=== PATIENT | male | born 1960 | race Caucasian/White ===

== ENCOUNTER → 2017-09-06 | Outpatient (CLI) | payer OTHER, SELFPAY ==
[~2017-09-06] MED LIST: ALBU90OI INH; ALBU90OI61 INH; AMLO10 PO; AMLO5 PO; AMOCLA500 PO; AMOX500 PO; ANTARA; ARIP10 PO; ARIP15 PO; ASPI325 PO; ASPI81CH PO; ASPI81EC; ASPI81EC PO; ATOR10 PO; ATOR20 PO; ATOR40TA PO; ATOR80 PO; ATORVASTATIN CA40 MG PO; AXIRON; AZIT250 PO; Abilify5 MG PO; Aspirin EC325 MG PO; Aspirin EC81 MG; Aspirin EC81 MG PO; Ativan0.5 MG PO; BACL10 PO; BCOIRO PO; BISA10S PR; BUME2 PO; CALC.25 PO; CALCA500CH PO; CARV25 PO; CEPH500 PO; CHOL10002; CHOL10002 PO; CLOP75 PO; COLCRYS0.6 MG PO; COMBIVENT RESPIM4 GM INH; CYCL10 PO; Carvedilol25 MG PO; Coreg25 MG PO; Cymbalta30 MG PO; Cymbalta60 MG PO; DIAZ10 PO; DILT30 PO; DOCU100 PO; DULO30 PO; DULO60 PO; Docusate Sodiu1 EACH PO; ERGO50000 PO; FERR325 PO; FERROUS SULFATE PO; FISH1000 PO; FURO40 PO; FURO80 PO; Ferrous Sulfat325 M2 PO; Furosemide40 MG PO; GAVILAX17 GM PO; GLIM2 PO; GLIP10 PO; GLIP5 PO; Glucagon Emergen1 MG IJ; HUMALOG KW200 UNIT/1 SC; HYDACE10B PO; HYDACE5 PO; HYDACE7.5 PO; HYDCHL12.5 PO; HYDHCL25 PO; HYDMOR2; HYDMOR2 PO; HYDPAM100 PO; Humalog Mi100 UNIT/4; Hydrochloroth12.5 MG; Hydrocodone-Ap1 EA20 PO; IMDUR; INS70/30I; INS70/30PN SC; INSDET100; INSDET100 SC; INSUASPI SC; INSULANI SC; INSULANPEN; INSULANPEN SC; IRON150C PO; ISOMON30 PO; Ipratr-Albuterol3 ML INH; Isosorbide Mono60 MG PO; K-Dur 20 meq T20 MEQ PO; LAVAP17G PO; LEVO750 PO; LISI10 PO; LISI20 PO; LISI5 PO; LORA1 PO; LOSA25; LOSA25 PO; LOSA50 PO; LOSARTAN POTASS50 MG PO; Lantus100 UNIT/1 SC; Lasix40 MG PO; MAGOXI400 PO; METF500; METF500 PO; METF500C PO; METH5 PO; METO100ER PO; METO2.5 PO; METO50ER PO; MULVIT PO; MULVITMIND PO; Metformin HCl500 M1 PO; Metformin HCl500 MG PO; Multiple Vitam1 EAC1 PO; NAPR550 PO; NITR.4SL MM; NITR.4SL SL; NITR.6SL SL; Norco 10-325 T1 EACH PO; Novolog Fl100 UNIT/1 SC; Novolog100 UNIT/1 SC; Novolog100 UNIT/2; Novolog100 UNIT/2 SC; OMEG1CAP30 PO; OMEP20ER PO; OXAP600; OXYACE7.5T PO; OXYC5 PO; PANT40 PO; PIOG15 PO; PIOG45 PO; POTA10T PO; POTA20LUD PO; POTCHL20ER PO; PREG100 PO; PREG25 PO; PREG50 PO; PREG75 PO; Percocet 5-3251 EACH PO; Percocet 7.5-31 EACH PO; Prednisone10 MG PO; RAMI2.5 PO; RANO500T; RANO500T PO; ROBITUSSIN COU237 ML PO; ROBITUSSIN NIG237 ML PO; ROSI2; ROSU10TA PO; RU 500 SC; RXHYDACE PO; RXOXYACE PO; Robaxin-750750 MG PO; SERT50 PO; SPIR25 PO; SPIR50 PO; TAMS.4ER PO; TORSE20 PO; TUMS500 MG PO; UBID100 PO; VENL150ER PO; VITAMIN D32000 UNIT PO; XARELTO15 MG PO; ZESTORETIC 20-121 EA; ZOLP10 PO; Zofran Odt4 MG SL; [UNRECOGNIZED DRUG - OTHER]
[2017-09-06 11:46] LABS: Hematocrit 29.6 % (37.0-53.0); Hemoglobin 9.3 g/dL (13.5-17.5)
[2017-09-06 12:01] LABS: Anion Gap 9 mmol/L (6-16); Blood Urea Nitrogen 66 mg/dL (8-24); Bun/Creatinine Ratio 52.8 (12.0-20.0); CO2, Blood 33 mmol/L (21-32); Calcium, Blood 9.4 mg/dL (8.5-10.1); Chloride, Blood 94 mmol/L (98-108); Creatinine, Blood 1.25 mg/dL (0.60-1.20); Glomerular Filtration Rate >60 (60-); Glucose, Blood 441 mg/dL (70-99); Magnesium, Blood 1.7 mg/dL (1.6-2.4); Phosphorus, Blood 3.9 mg/dL (2.5-4.9); Sodium, Blood 136 mmol/L (136-145)
== END | disposition home or self-care (01) ==
LOC: OLS 10:28
PROVIDERS: Internal Medicine
DX: N18.3 Chronic kidney disease, stage 3 (moderate) (principal); D63.1 Anemia in chronic kidney disease; E61.2 Magnesium deficiency
CPT/HCPCS: 36415; 80069; 83735; 85014; 85018

== ENCOUNTER 2017-12-12 15:33 | Observation (INO) | payer OTHER ==
[~2017-12-12] VITALS: Ht 175.3 cm; Wt 125.4 kg
[~2017-12-12 15:33] MED LIST changes: -AMLO10 PO; -ATOR80 PO; -BACL10 PO; -BISA10S PR; -CALC.25 PO; -CEPH500 PO; -COLCRYS0.6 MG PO; -Cymbalta30 MG PO; -Cymbalta60 MG PO; -DILT30 PO; -DULO30 PO; -Ferrous Sulfat325 M2 PO; -HUMALOG KW200 UNIT/1 SC; -HYDHCL25 PO; -HYDMOR2 PO; -HYDPAM100 PO; -Humalog Mi100 UNIT/4; -Hydrocodone-Ap1 EA20 PO; -IMDUR; -Metformin HCl500 MG PO; -Novolog100 UNIT/2 SC; -OXAP600; -POTCHL20ER PO; -PREG75 PO; -Prednisone10 MG PO; -ROBITUSSIN NIG237 ML PO; -RU 500 SC; -Robaxin-750750 MG PO; -SPIR25 PO
[2017-12-12 15:55] LABS: Calcium, Ionized (POC) 1.19 mmol/L (1.10-1.46); Chloride (POC) 87 mmol/L (98-108); Creatinine (POC) 1.7 mg/dL (0.8-1.3); Glucose (ISTAT POC) 559 mg/dL (70-99); Hemoglobin (POC) 11.9 g/dL (13.5-17.5); Potassium (POC) 4.7 mmol/L (3.5-5.5); Sodium (POC) 128 mmol/L (135-148); Total CO2 (POC) 30 mmol/L (21-32)
[2017-12-12 16:17] LABS: Hematocrit 32.3 % (37.0-53.0); Hemoglobin 11.2 g/dL (13.5-17.5); Mean Corpuscular HGB 29.5 pg (26.0-34.0); Mean Corpuscular HGB Conc 34.7 g/dL (31.5-36.5); Mean Corpuscular Volume 85 fL (80-100); Mean Platelet Volume 9.1 fL (9.1-12.4); Platelet Count 145 K/mm3 (150-400); RDW Coefficient Variation 16.2 % (11.7-14.2); White Blood Cell Count 12.08 K/mm3 (4.00-11.30)
[2017-12-12 16:31] LABS: International Normalized Ratio 1.03; Prothrombin Time Results 10.7 Sec (9.7-11.5)
[2017-12-12 16:45] LABS: Alanine Aminotransfer (ALT/SGP 41 U/L (12-78); Albumin, Blood 3.3 g/dL (3.4-5.0); Albumin/Globulin Ratio 0.8 (0.8-1.8); Alk Phos 140 U/L (50-136); Anion Gap 10 mmol/L (6-16); Aspartate Aminotrans (AST/SGOT 29 U/L (12-37); Bilirubin, Total 0.4 mg/dL (0.1-1.0); Blood Urea Nitrogen 62 mg/dL (8-24); Bun/Creatinine Ratio 41.1 (12.0-20.0); CHOL/HDL RATIO 6.2; CO2, Blood 28 mmol/L (21-32); Calcium, Blood 9.3 mg/dL (8.5-10.1); Chloride, Blood 90 mmol/L (98-108); Cholesterol 180 mg/dL (50-200); Creatinine, Blood 1.51 mg/dL (0.60-1.20); Globulin, Blood 4.4 g/dL (2.2-4.0); Glomerular Filtration Rate 51 (60-); Glucose, Blood 561 mg/dL (70-99); HDL Cholesterol 29 mg/dL (>39); LDL/HDL RATIO Unable to Calculate; Low Density Lipoprotein Chol Unable to Calculate mg/dL (0-110); Magnesium, Blood 2.2 mg/dL (1.6-2.4); Potassium, Blood 4.5 mmol/L (3.5-5.5); Sodium, Blood 128 mmol/L (136-145); Total Protein, Blood 7.7 g/dL (6.4-8.2); Triglycerides 927 mg/dL (30-160); Troponin I <0.015 ng/mL (0.000-0.040); Very Low Density Lipoprot Chol Unable to Calculate mg/dL (6-32)
[2017-12-12] MEDS ORDERED: Novolog100 UNIT/2 SC (19:55)
[2017-12-12] MEDS ORDERED: INSULANPEN SC (19:58)
[2017-12-12] MEDS ORDERED: SPIR25 PO ×2 (19:59→20:00)
[2017-12-12] MEDS ORDERED: POTCHL20ER PO (20:01)
[2017-12-12] MEDS ORDERED: ASPI81CH PO (20:04)
[2017-12-13 04:27] LABS: BASOPHILS ABSOLUTE AUTO 0.05 K/mm3 (0.00-0.23); BASOPHILS PERCENT AUTO 0 % (0-2); EOSINOPHILS ABSOLUTE AUTO 0.18 K/mm3 (0.00-0.68); EOSINOPHILS PERCENT AUTO 2 % (0-6); Hematocrit 32.6 % (37.0-53.0); Hemoglobin 10.6 g/dL (13.5-17.5); IMMATURE GRAN ABSOLUTE AUTO 0.31 K/mm3 (0.00-0.10); IMMATURE GRAN PERCENT AUTO 3 % (0-1); LYMPHOCYTES ABSOLUTE AUTO 1.88 K/mm3 (0.84-5.20); LYMPHOCYTES PERCENT AUTO 17 % (21-46); MONOCYTES ABSOLUTE AUTO 0.75 K/mm3 (0.16-1.47); MONOCYTES PERCENT AUTO 7 % (4-13); Mean Corpuscular HGB 28.3 pg (26.0-34.0); Mean Corpuscular HGB Conc 32.5 g/dL (31.5-36.5); Mean Corpuscular Volume 87 fL (80-100); Mean Platelet Volume 9.3 fL (9.1-12.4); NEUTROPHILS ABSOLUTE AUTO 8.08 K/mm3 (1.96-9.15); NEUTROPHILS PERCENT AUTO 72 % (41-73); Platelet Count 133 K/mm3 (150-400); RDW Coefficient Variation 16.5 % (11.7-14.2); Red Blood Cell Count 3.74 M/mm3 (4.30-5.90); White Blood Cell Count 11.25 K/mm3 (4.00-11.30)
[2017-12-13 04:44] LABS: Albumin, Blood 3.1 g/dL (3.4-5.0); Anion Gap 8 mmol/L (6-16); Blood Urea Nitrogen 52 mg/dL (8-24); Bun/Creatinine Ratio 40.9 (12.0-20.0); CO2, Blood 30 mmol/L (21-32); Calcium, Blood 9.2 mg/dL (8.5-10.1); Chloride, Blood 96 mmol/L (98-108); Creatinine, Blood 1.27 mg/dL (0.60-1.20); Glomerular Filtration Rate >60 (60-); Glucose, Blood 332 mg/dL (70-99); Phosphorus, Blood 4.2 mg/dL (2.5-4.9); Potassium, Blood 4.1 mmol/L (3.5-5.5); Sodium, Blood 134 mmol/L (136-145)
== END 2017-12-13 15:22 | disposition home or self-care (01) ==
LOC: ER 15:33 → ICUW 15:34 → ICUE 15:34
PROVIDERS: Family Medicine; Physician Assistant
DX: R07.9 Chest pain, unspecified (principal); E11.22 Type 2 diabetes mellitus with diabetic chronic kidney disease; I13.0 Hypertensive heart and chronic kidney disease with heart failure and stage 1 through stage 4 chronic kidney disease, or unspecified chronic kidney disease; I50.9 Heart failure, unspecified; N18.3 Chronic kidney disease, stage 3 (moderate); I25.10 Atherosclerotic heart disease of native coronary artery without angina pectoris; E78.1 Pure hyperglyceridemia; J44.9 Chronic obstructive pulmonary disease, unspecified; E11.65 Type 2 diabetes mellitus with hyperglycemia; E87.1 Hypo-osmolality and hyponatremia; D72.829 Elevated white blood cell count, unspecified; D69.6 Thrombocytopenia, unspecified; G47.33 Obstructive sleep apnea (adult) (pediatric); E66.01 Morbid (severe) obesity due to excess calories; E11.40 Type 2 diabetes mellitus with diabetic neuropathy, unspecified; Z99.89 Dependence on other enabling machines and devices; Z95.1 Presence of aortocoronary bypass graft; Z95.5 Presence of coronary angioplasty implant and graft; Z99.81 Dependence on supplemental oxygen; Z86.73 Personal history of transient ischemic attack (TIA), and cerebral infarction without residual deficits; Z86.711 Personal history of pulmonary embolism; Z98.890 Other specified postprocedural states; Z88.8 Allergy status to other drugs, medicaments and biological substances; Z88.5 Allergy status to narcotic agent; Z79.899 Other long term (current) drug therapy; Z79.2 Long term (current) use of antibiotics; Z79.82 Long term (current) use of aspirin; Z68.41 Body mass index [BMI] 40.0-44.9, adult
CPT/HCPCS: 36415; 71046; 80047; 80053; 80061; 80069; 82947; 83690; 83735; 83880; 84484; 85014; 85025; 85027; 85379; 85610; 85730; 86850; 86900; 86901; 93005; 93010; 94660; 96361; 96374; 96375; 99285; C8929; J1815; J3010; J7030; J7070; Q9957

== ENCOUNTER 2017-12-22 20:09 | Observation (INO) | payer OTHER ==
[~2017-12-22] VITALS: Ht 175.3 cm; Wt 125.6 kg
[~2017-12-22 20:09] MED LIST changes: +Novolog100 UNIT/2 SC; +POTCHL20ER PO; +SPIR25 PO
[2017-12-22] MEDS ORDERED: TORSE20 PO (20:32)
[2017-12-22] MEDS ORDERED: METO2.5 PO (20:32)
[2017-12-22 20:45] LABS: BASOPHILS ABSOLUTE AUTO 0.03 K/mm3 (0.00-0.23); BASOPHILS PERCENT AUTO 0 % (0-2); EOSINOPHILS ABSOLUTE AUTO 0.01 K/mm3 (0.00-0.68); EOSINOPHILS PERCENT AUTO 0 % (0-6); Hematocrit 32.7 % (37.0-53.0); Hemoglobin 11.2 g/dL (13.5-17.5); IMMATURE GRAN ABSOLUTE AUTO 0.26 K/mm3 (0.00-0.10); IMMATURE GRAN PERCENT AUTO 3 % (0-1); LYMPHOCYTES ABSOLUTE AUTO 0.61 K/mm3 (0.84-5.20); LYMPHOCYTES PERCENT AUTO 7 % (21-46); MONOCYTES ABSOLUTE AUTO 0.15 K/mm3 (0.16-1.47); MONOCYTES PERCENT AUTO 2 % (4-13); Mean Corpuscular HGB 29.7 pg (26.0-34.0); Mean Corpuscular HGB Conc 34.3 g/dL (31.5-36.5); Mean Corpuscular Volume 87 fL (80-100); Mean Platelet Volume 9.1 fL (9.1-12.4); NEUTROPHILS ABSOLUTE AUTO 7.87 K/mm3 (1.96-9.15); NEUTROPHILS PERCENT AUTO 88 % (41-73); Platelet Count 138 K/mm3 (150-400); RDW Coefficient Variation 15.5 % (11.7-14.2); RDW Standard Deviation 48.6 fL (35.1-46.3); Red Blood Cell Count 3.77 M/mm3 (4.30-5.90); White Blood Cell Count 8.93 K/mm3 (4.00-11.30)
[2017-12-22 21:06] LABS: Troponin I <0.015 ng/mL (0.000-0.040)
[2017-12-22 21:10] LABS: Alanine Aminotransfer (ALT/SGP 46 U/L (12-78); Albumin, Blood 3.4 g/dL (3.4-5.0); Albumin/Globulin Ratio 0.7 (0.8-1.8); Alk Phos 135 U/L (50-136); Anion Gap 13 mmol/L (6-16); Aspartate Aminotrans (AST/SGOT 27 U/L (12-37); Bilirubin, Total 0.5 mg/dL (0.1-1.0); Blood Urea Nitrogen 58 mg/dL (8-24); Bun/Creatinine Ratio 47.5 (12.0-20.0); CO2, Blood 26 mmol/L (21-32); Calcium, Blood 9.4 mg/dL (8.5-10.1); Chloride, Blood 88 mmol/L (98-108); Creatinine, Blood 1.22 mg/dL (0.60-1.20); Globulin, Blood 4.7 g/dL (2.2-4.0); Glomerular Filtration Rate >60 (60-); Glucose, Blood 697 mg/dL (70-99); Potassium, Blood 5.5 mmol/L (3.5-5.5); Sodium, Blood 127 mmol/L (136-145); Total Protein, Blood 8.1 g/dL (6.4-8.2)
[2017-12-22 21:17] LABS: Source, Urine Clean Catch
[2017-12-22 21:19] LABS: Bilirubin, Urine Neg (Neg); Blood, Urine Neg (Neg); Glucose Qualitative, Urine 4+ (Neg); Ketones, Urine Neg (Neg); Leukocyte Esterase, Urine Neg (Neg); Nitrite, Urine Neg (Neg); Protein, Urine Neg (Neg); Specific Gravity, Urine 1.015 (1.003-1.022); Urobilinogen, Urine NORM (Normal)
[2017-12-22 21:20] LABS: Appearance, Urine Clear (Clear); Color, Urine Pale Yellow (P-Yellow)
[2017-12-22 21:45] LABS: Beta-hydroxybutyrate 2.6 mg/dL (0.2-2.8)
[2017-12-23 00:34] LABS: Glucose, Blood 555 mg/dL (70-99)
[2017-12-23 08:59] LABS: BASOPHILS ABSOLUTE AUTO 0.04 K/mm3 (0.00-0.23); BASOPHILS PERCENT AUTO 0 % (0-2); EOSINOPHILS ABSOLUTE AUTO 0.02 K/mm3 (0.00-0.68); EOSINOPHILS PERCENT AUTO 0 % (0-6); Hematocrit 33.4 % (37.0-53.0); IMMATURE GRAN PERCENT AUTO 2 % (0-1); LYMPHOCYTES ABSOLUTE AUTO 1.17 K/mm3 (0.84-5.20); LYMPHOCYTES PERCENT AUTO 12 % (21-46); MONOCYTES ABSOLUTE AUTO 0.59 K/mm3 (0.16-1.47); MONOCYTES PERCENT AUTO 6 % (4-13); Mean Corpuscular HGB Conc 32.9 g/dL (31.5-36.5); Mean Corpuscular Volume 88 fL (80-100); Mean Platelet Volume 8.7 fL (9.1-12.4); NEUTROPHILS ABSOLUTE AUTO 7.99 K/mm3 (1.96-9.15); NEUTROPHILS PERCENT AUTO 80 % (41-73); Platelet Count 128 K/mm3 (150-400); RDW Coefficient Variation 15.6 % (11.7-14.2); RDW Standard Deviation 49.1 fL (35.1-46.3); Red Blood Cell Count 3.79 M/mm3 (4.30-5.90); White Blood Cell Count 10.01 K/mm3 (4.00-11.30)
[2017-12-23 09:17] LABS: Anion Gap 10 mmol/L (6-16); Blood Urea Nitrogen 52 mg/dL (8-24); Bun/Creatinine Ratio 49.1 (12.0-20.0); CO2, Blood 28 mmol/L (21-32); Calcium, Blood 9.1 mg/dL (8.5-10.1); Chloride, Blood 96 mmol/L (98-108); Creatinine, Blood 1.06 mg/dL (0.60-1.20); Glomerular Filtration Rate >60 (60-); Glucose, Blood 383 mg/dL (70-99); Potassium, Blood 4.5 mmol/L (3.5-5.5); Sodium, Blood 134 mmol/L (136-145); Troponin I <0.015 ng/mL (0.000-0.040)
[2017-12-24 08:43] LABS: Amylase, Blood 25 U/L (25-115)
[2017-12-25 08:16] LABS: HBSAG SCREEN Negative (Negative); HEP A AB, IGM Negative (Negative); HEP B CORE AB, IGM Negative (Negative); HEP C VIRUS AB <0.1 (0.0-0.9)
[2017-12-27] MEDS ORDERED: ATOR80 PO (10:11)
== END 2017-12-27 10:50 | disposition home or self-care (01) ==
LOC: ER 20:09 → PCU 20:10 → MEDS 20:10 → PCU 23:56 → MEDS 12-25 17:26 → ENPENDDIS 12-27 08:00 → MEDS 12-27 10:50
PROVIDERS: Emergency Medicine; Family Medicine; Internal Medicine; Nurse Practitioner Acute Care
DX: R07.9 Chest pain, unspecified (principal); E11.22 Type 2 diabetes mellitus with diabetic chronic kidney disease; I50.32 Chronic diastolic (congestive) heart failure; I13.0 Hypertensive heart and chronic kidney disease with heart failure and stage 1 through stage 4 chronic kidney disease, or unspecified chronic kidney disease; N18.3 Chronic kidney disease, stage 3 (moderate); N17.9 Acute kidney failure, unspecified; K76.0 Fatty (change of) liver, not elsewhere classified; D69.6 Thrombocytopenia, unspecified; K59.00 Constipation, unspecified; J96.11 Chronic respiratory failure with hypoxia; E78.1 Pure hyperglyceridemia; E66.01 Morbid (severe) obesity due to excess calories; E11.40 Type 2 diabetes mellitus with diabetic neuropathy, unspecified; F32.9 Major depressive disorder, single episode, unspecified; M79.7 Fibromyalgia; I25.10 Atherosclerotic heart disease of native coronary artery without angina pectoris; E11.65 Type 2 diabetes mellitus with hyperglycemia; E87.1 Hypo-osmolality and hyponatremia; E78.00 Pure hypercholesterolemia, unspecified; G47.30 Sleep apnea, unspecified; J44.9 Chronic obstructive pulmonary disease, unspecified; Z82.49 Family history of ischemic heart disease and other diseases of the circulatory system; Z95.1 Presence of aortocoronary bypass graft; Z88.8 Allergy status to other drugs, medicaments and biological substances; Z79.02 Long term (current) use of antithrombotics/antiplatelets; Z79.899 Other long term (current) drug therapy; Z86.73 Personal history of transient ischemic attack (TIA), and cerebral infarction without residual deficits; Z95.5 Presence of coronary angioplasty implant and graft; Z99.89 Dependence on other enabling machines and devices; Z79.01 Long term (current) use of anticoagulants; Z86.711 Personal history of pulmonary embolism; R93.2 Abnormal findings on diagnostic imaging of liver and biliary tract
CPT/HCPCS: 36415; 71046; 71260; 76705; 80048; 80053; 80074; 81003; 82010; 82103; 82150; 82947; 83690; 83880; 84484; 85025; 85379; 93005; 93010; 94760; 94762; 96361; 96372; 96374; 96375; 96376; 99285; G0378; J1650; J1815; J2060; J2405; J3010; J7030; Q9967

== ENCOUNTER → 2018-01-05 | Outpatient (CLI) | payer OTHER, SELFPAY ==
[~2018-01-05] MED LIST changes: +ATOR80 PO; +BISA10S PR; +CEPH500 PO; +Cymbalta30 MG PO; +Cymbalta60 MG PO; +HYDHCL25 PO; +HYDMOR2 PO
[2018-01-05 10:10] LABS: BASOPHILS ABSOLUTE AUTO 0.07 K/mm3 (0.00-0.23); BASOPHILS PERCENT AUTO 1 % (0-2); EOSINOPHILS ABSOLUTE AUTO 0.41 K/mm3 (0.00-0.68); EOSINOPHILS PERCENT AUTO 3 % (0-6); Hematocrit 31.1 % (37.0-53.0); Hemoglobin 10.5 g/dL (13.5-17.5); IMMATURE GRAN ABSOLUTE AUTO 0.41 K/mm3 (0.00-0.10); IMMATURE GRAN PERCENT AUTO 3 % (0-1); LYMPHOCYTES PERCENT AUTO 13 % (21-46); MONOCYTES ABSOLUTE AUTO 0.92 K/mm3 (0.16-1.47); MONOCYTES PERCENT AUTO 7 % (4-13); Mean Corpuscular HGB 29.7 pg (26.0-34.0); Mean Corpuscular HGB Conc 33.8 g/dL (31.5-36.5); Mean Corpuscular Volume 88 fL (80-100); Mean Platelet Volume 8.4 fL (9.1-12.4); NEUTROPHILS ABSOLUTE AUTO 9.35 K/mm3 (1.96-9.15); NEUTROPHILS PERCENT AUTO 73 % (41-73); Platelet Count 145 K/mm3 (150-400); RDW Coefficient Variation 15.2 % (11.7-14.2); RDW Standard Deviation 48.5 fL (35.1-46.3); Red Blood Cell Count 3.53 M/mm3 (4.30-5.90); White Blood Cell Count 12.86 K/mm3 (4.00-11.30)
[2018-01-05 10:21] LABS: Albumin/Globulin Ratio 0.7 (0.8-1.8); Bilirubin, Total 0.3 mg/dL (0.1-1.0); Bun/Creatinine Ratio 19.6 (12.0-20.0); Calcium, Blood 9.1 mg/dL (8.5-10.1); Creatinine, Blood 1.63 mg/dL (0.60-1.20); Globulin, Blood 4.4 g/dL (2.2-4.0); Potassium, Blood 4.1 mmol/L (3.5-5.5); Total Protein, Blood 7.4 g/dL (6.4-8.2); Uric Acid, Blood 13.5 mg/dL (3.5-7.2)
== END | disposition home or self-care (01) ==
LOC: LAB EV 10:04 → LAB SHORT 10:04
PROVIDERS: Physician Assistant
DX: M25.521 Pain in right elbow (principal)
CPT/HCPCS: 80053; 84550; 85025

== ENCOUNTER 2018-01-07 00:24 | Emergency (ER) | payer OTHER, SELFPAY ==
[~2018-01-07] VITALS: Ht 175.3 cm; Wt 123.8 kg
[~2018-01-07 00:24] MED LIST changes: -Cymbalta30 MG PO; -Cymbalta60 MG PO; -HYDHCL25 PO
[2018-01-07 00:46] LABS: BASOPHILS ABSOLUTE AUTO 0.11 K/mm3 (0.00-0.23); BASOPHILS PERCENT AUTO 1 % (0-2); EOSINOPHILS ABSOLUTE AUTO 0.37 K/mm3 (0.00-0.68); EOSINOPHILS PERCENT AUTO 3 % (0-6); Hematocrit 33.7 % (37.0-53.0); Hemoglobin 11.2 g/dL (13.5-17.5); IMMATURE GRAN ABSOLUTE AUTO 0.55 K/mm3 (0.00-0.10); IMMATURE GRAN PERCENT AUTO 5 % (0-1); LYMPHOCYTES ABSOLUTE AUTO 1.55 K/mm3 (0.84-5.20); LYMPHOCYTES PERCENT AUTO 14 % (21-46); MONOCYTES ABSOLUTE AUTO 0.61 K/mm3 (0.16-1.47); MONOCYTES PERCENT AUTO 5 % (4-13); Mean Corpuscular HGB 29.6 pg (26.0-34.0); Mean Corpuscular HGB Conc 33.2 g/dL (31.5-36.5); Mean Corpuscular Volume 89 fL (80-100); Mean Platelet Volume 8.6 fL (9.1-12.4); NEUTROPHILS ABSOLUTE AUTO 8.33 K/mm3 (1.96-9.15); NEUTROPHILS PERCENT AUTO 72 % (41-73); Platelet Count 168 K/mm3 (150-400); RDW Standard Deviation 48.5 fL (35.1-46.3); Red Blood Cell Count 3.78 M/mm3 (4.30-5.90); White Blood Cell Count 11.52 K/mm3 (4.00-11.30)
[2018-01-07 01:06] LABS: Alanine Aminotransfer (ALT/SGP 31 U/L (12-78); Albumin, Blood 2.9 g/dL (3.4-5.0); Albumin/Globulin Ratio 0.6 (0.8-1.8); Alk Phos 125 U/L (50-136); Anion Gap 12 mmol/L (6-16); Aspartate Aminotrans (AST/SGOT 31 U/L (12-37); Bilirubin, Total 0.5 mg/dL (0.1-1.0); Blood Urea Nitrogen 27 mg/dL (8-24); Bun/Creatinine Ratio 24.8 (12.0-20.0); CO2, Blood 26 mmol/L (21-32); Calcium, Blood 8.8 mg/dL (8.5-10.1); Chloride, Blood 97 mmol/L (98-108); Creatinine, Blood 1.09 mg/dL (0.60-1.20); Globulin, Blood 4.6 g/dL (2.2-4.0); Glomerular Filtration Rate >60 (60-); Glucose, Blood 495 mg/dL (70-99); Potassium, Blood 4.3 mmol/L (3.5-5.5); Sodium, Blood 135 mmol/L (136-145); Total Protein, Blood 7.5 g/dL (6.4-8.2); Troponin I <0.015 ng/mL (0.000-0.040)
[2018-01-07] MEDS ORDERED: HYDHCL25 PO (03:14)
[2018-01-07] MEDS ORDERED: Cymbalta30 MG PO (03:14)
[2018-01-07] MEDS ORDERED: Cymbalta60 MG PO (03:14)
== END 2018-01-07 09:05 | disposition home or self-care (01) ==
LOC: ER 00:24
PROVIDERS: Emergency Medicine
DX: F32.9 Major depressive disorder, single episode, unspecified (principal); R45.851 Suicidal ideations; E11.9 Type 2 diabetes mellitus without complications; I50.9 Heart failure, unspecified; Z88.8 Allergy status to other drugs, medicaments and biological substances; Z88.6 Allergy status to analgesic agent; Z79.899 Other long term (current) drug therapy; Z79.4 Long term (current) use of insulin
CPT/HCPCS: 36415; 71046; 80053; 83880; 84484; 85025; 93005; 93010; 96374; 96375; 99284; J1200; J1885; Q3014

== ENCOUNTER 2018-01-10 09:28 | Day surgery (SDC) | payer OTHER, SELFPAY ==
[~2018-01-10 09:28] MED LIST changes: +Cymbalta30 MG PO; +Cymbalta60 MG PO; +HYDHCL25 PO
== END 2018-01-10 23:05 | disposition home or self-care (01) ==
LOC: US 09:28
PROVIDERS: Radiology Diagnostic Radiology
PROC: 0FB03ZX Excision of Liver, Percutaneous Approach, Diagnostic (ICD-10-PCS; principal; 2018-01-10 11:00)
DX: K75.81 Nonalcoholic steatohepatitis (NASH) (principal); K74.0 Hepatic fibrosis
CPT/HCPCS: 47000; 76942

== ENCOUNTER 2018-02-20 21:52 | Emergency (ER) | payer OTHER, SELFPAY ==
[~2018-02-20] VITALS: Ht 175.3 cm; Wt 132.9 kg
[2018-02-20 22:52] LABS: BASOPHILS ABSOLUTE AUTO 0.05 K/mm3 (0.00-0.23); BASOPHILS PERCENT AUTO 1 % (0-2); EOSINOPHILS ABSOLUTE AUTO 0.16 K/mm3 (0.00-0.68); EOSINOPHILS PERCENT AUTO 2 % (0-6); Hematocrit 31.8 % (37.0-53.0); Hemoglobin 10.5 g/dL (13.5-17.5); IMMATURE GRAN ABSOLUTE AUTO 0.31 K/mm3 (0.00-0.10); IMMATURE GRAN PERCENT AUTO 3 % (0-1); LYMPHOCYTES ABSOLUTE AUTO 1.42 K/mm3 (0.84-5.20); LYMPHOCYTES PERCENT AUTO 13 % (21-46); MONOCYTES ABSOLUTE AUTO 0.89 K/mm3 (0.16-1.47); MONOCYTES PERCENT AUTO 8 % (4-13); Mean Corpuscular HGB 29.2 pg (26.0-34.0); Mean Corpuscular Volume 89 fL (80-100); Mean Platelet Volume 8.9 fL (9.1-12.4); NEUTROPHILS ABSOLUTE AUTO 7.92 K/mm3 (1.96-9.15); NEUTROPHILS PERCENT AUTO 74 % (41-73); Platelet Count 162 K/mm3 (150-400); RDW Coefficient Variation 14.6 % (11.7-14.2); RDW Standard Deviation 46.4 fL (35.1-46.3); Red Blood Cell Count 3.59 M/mm3 (4.30-5.90); White Blood Cell Count 10.75 K/mm3 (4.00-11.30)
[2018-02-20 23:07] LABS: Alanine Aminotransfer (ALT/SGP 64 U/L (12-78); Albumin, Blood 3.2 g/dL (3.4-5.0); Albumin/Globulin Ratio 0.7 (0.8-1.8); Alk Phos 155 U/L (50-136); Anion Gap 9 mmol/L (6-16); Aspartate Aminotrans (AST/SGOT 52 U/L (12-37); Bilirubin, Total 0.5 mg/dL (0.1-1.0); Blood Urea Nitrogen 83 mg/dL (8-24); Bun/Creatinine Ratio 49.1 (12.0-20.0); CO2, Blood 33 mmol/L (21-32); Calcium, Blood 8.6 mg/dL (8.5-10.1); Chloride, Blood 88 mmol/L (98-108); Creatinine, Blood 1.69 mg/dL (0.60-1.20); Globulin, Blood 4.5 g/dL (2.2-4.0); Glomerular Filtration Rate 44 (60-); Glucose, Blood 442 mg/dL (70-99); Potassium, Blood 4.9 mmol/L (3.5-5.5); Sodium, Blood 130 mmol/L (136-145); Total Protein, Blood 7.7 g/dL (6.4-8.2); Troponin I <0.015 ng/mL (0.000-0.040)
[2018-02-21 00:49] LABS: Appearance, Urine Clear (Clear); Bilirubin, Urine Neg (Neg); Blood, Urine Neg (Neg); Color, Urine Yellow (P-Yellow); Glucose Qualitative, Urine 2+ (Neg); Ketones, Urine Neg (Neg); Leukocyte Esterase, Urine Neg (Neg); Nitrite, Urine Neg (Neg); Protein, Urine Neg (Neg); Urobilinogen, Urine NORM (Normal)
[2018-02-22] MEDS ORDERED: Humalog Mi100 UNIT/4 (02:17)
[2018-02-22] MEDS ORDERED: ASPI81CH PO (02:23)
[2018-02-23] MEDS ORDERED: Ferrous Sulfat325 M2 PO (15:12)
== END 2018-02-21 01:05 | disposition home or self-care (01) ==
LOC: ER 21:52
PROVIDERS: Emergency Medicine
DX: E66.01 Morbid (severe) obesity due to excess calories (principal); R60.0 Localized edema; N18.9 Chronic kidney disease, unspecified; E11.22 Type 2 diabetes mellitus with diabetic chronic kidney disease; F32.9 Major depressive disorder, single episode, unspecified; I50.9 Heart failure, unspecified; Z88.8 Allergy status to other drugs, medicaments and biological substances; Z88.6 Allergy status to analgesic agent; Z79.899 Other long term (current) drug therapy; Z79.4 Long term (current) use of insulin; Z86.73 Personal history of transient ischemic attack (TIA), and cerebral infarction without residual deficits; Z68.41 Body mass index [BMI] 40.0-44.9, adult
CPT/HCPCS: 36415; 71045; 80053; 81003; 82947; 83880; 84484; 85025; 93005; 93010; 96361; 96374; 99283-25; J1815; J1940; J7030

== ENCOUNTER → 2018-03-07 | Outpatient (CLI) | payer OTHER, SELFPAY ==
[~2018-03-07] MED LIST changes: +Ferrous Sulfat325 M2 PO; +Humalog Mi100 UNIT/4
== END ==
LOC: LAB SHORT 09:54 → LAB 09:54 → EDSTATUS 02-28 09:30 → LAB FUT 02-28 09:30
PROVIDERS: Physician Assistant Medical
DX: E88.81 Metabolic syndrome and other insulin resistance (principal); Z68.41 Body mass index [BMI] 40.0-44.9, adult
CPT/HCPCS: 81050

== ENCOUNTER 2018-04-03 19:28 | Observation (INO) | payer OTHER ==
[~2018-04-03] VITALS: Ht 177.8 cm; Wt 135.6 kg
[~2018-04-03 19:28] MED LIST changes: +COLCRYS0.6 MG PO; +Hydrocodone-Ap1 EA20 PO; +OXAP600; +PREG75 PO; +RU 500 SC
[2018-04-03 20:04] LABS: BASOPHILS ABSOLUTE AUTO 0.03 K/mm3 (0.00-0.23); BASOPHILS PERCENT AUTO 0 % (0-2); EOSINOPHILS ABSOLUTE AUTO 0.64 K/mm3 (0.00-0.68); EOSINOPHILS PERCENT AUTO 6 % (0-6); Hematocrit 31.1 % (37.0-53.0); Hemoglobin 9.7 g/dL (13.5-17.5); IMMATURE GRAN ABSOLUTE AUTO 0.45 K/mm3 (0.00-0.10); IMMATURE GRAN PERCENT AUTO 4 % (0-1); LYMPHOCYTES ABSOLUTE AUTO 1.58 K/mm3 (0.84-5.20); LYMPHOCYTES PERCENT AUTO 16 % (21-46); MONOCYTES ABSOLUTE AUTO 0.75 K/mm3 (0.16-1.47); MONOCYTES PERCENT AUTO 7 % (4-13); Mean Corpuscular HGB 28.1 pg (26.0-34.0); Mean Corpuscular HGB Conc 31.2 g/dL (31.5-36.5); NEUTROPHILS PERCENT AUTO 66 % (41-73); Platelet Count 158 K/mm3 (150-400); RDW Coefficient Variation 15.6 % (11.7-14.2); RDW Standard Deviation 51.4 fL (35.1-46.3); Red Blood Cell Count 3.45 M/mm3 (4.30-5.90); White Blood Cell Count 10.15 K/mm3 (4.00-11.30)
[2018-04-03 20:09] LABS: Mean Corpuscular Volume 90 fL (80-100)
[2018-04-03 20:24] LABS: Troponin I <0.015 ng/mL (0.000-0.040)
[2018-04-03 20:25] LABS: Alanine Aminotransfer (ALT/SGP 49 U/L (12-78); Albumin, Blood 3.1 g/dL (3.4-5.0); Albumin/Globulin Ratio 0.7 (0.8-1.8); Alk Phos 112 U/L (50-136); Anion Gap 12 mmol/L (6-16); Aspartate Aminotrans (AST/SGOT 37 U/L (12-37); Bilirubin, Total 0.3 mg/dL (0.1-1.0); Blood Urea Nitrogen 60 mg/dL (8-24); CO2, Blood 26 mmol/L (21-32); Chloride, Blood 97 mmol/L (98-108); Creatinine, Blood 1.58 mg/dL (0.60-1.20); Globulin, Blood 4.4 g/dL (2.2-4.0); Glomerular Filtration Rate 48 (60-); Glucose, Blood 389 mg/dL (70-99); Potassium, Blood 4.5 mmol/L (3.5-5.5); Sodium, Blood 135 mmol/L (136-145); Total Protein, Blood 7.5 g/dL (6.4-8.2)
[2018-04-03 22:27] LABS: D-Dimer, Quantitative 0.58 mg/L FEU (0.00-0.52); International Normalized Ratio 1.03; Prothrombin Time Results 10.6 Sec (9.7-11.5)
[2018-04-04 05:46] LABS: Hematocrit 32.6 % (37.0-53.0); Hemoglobin 10.1 g/dL (13.5-17.5); Mean Corpuscular HGB 28.5 pg (26.0-34.0); Mean Corpuscular Volume 92 fL (80-100); Mean Platelet Volume 8.9 fL (9.1-12.4); Platelet Count 139 K/mm3 (150-400); RDW Coefficient Variation 15.7 % (11.7-14.2); RDW Standard Deviation 53.1 fL (35.1-46.3); Red Blood Cell Count 3.55 M/mm3 (4.30-5.90); White Blood Cell Count 9.14 K/mm3 (4.00-11.30)
[2018-04-04 06:15] LABS: Albumin, Blood 2.9 g/dL (3.4-5.0); Albumin/Globulin Ratio 0.6 (0.8-1.8); Bilirubin, Total 0.2 mg/dL (0.1-1.0); Bun/Creatinine Ratio 36.4 (12.0-20.0); Calcium, Blood 9.1 mg/dL (8.5-10.1); Creatinine, Blood 1.54 mg/dL (0.60-1.20); Globulin, Blood 4.7 g/dL (2.2-4.0); Potassium, Blood 4.3 mmol/L (3.5-5.5); Total Protein, Blood 7.6 g/dL (6.4-8.2)
[2018-04-04 06:18] LABS: CPK Creatine Kinase 87 U/L (39-308); Troponin I <0.015 ng/mL (0.000-0.040)
[2018-04-04 14:24] LABS: CPK Creatine Kinase 74 U/L (39-308)
[2018-04-04 14:29] LABS: Troponin I <0.015 ng/mL (0.000-0.040)
[2018-04-05] MEDS ORDERED: HUMALOG KW200 UNIT/1 SC (13:52)
[2018-04-05] MEDS ORDERED: RANO500T PO (13:57)
== END 2018-04-05 14:43 | disposition home or self-care (01) ==
LOC: ER 19:28 → PCU 19:29 → MEDS 23:29 → PCU 23:29 → MEDS 23:29 → ENPENDDIS 04-05 11:00 → MEDS 04-05 14:43
PROVIDERS: Emergency Medicine; Internal Medicine
DX: R07.9 Chest pain, unspecified (principal); I25.10 Atherosclerotic heart disease of native coronary artery without angina pectoris; I12.9 Hypertensive chronic kidney disease with stage 1 through stage 4 chronic kidney disease, or unspecified chronic kidney disease; E11.22 Type 2 diabetes mellitus with diabetic chronic kidney disease; E11.65 Type 2 diabetes mellitus with hyperglycemia; N18.2 Chronic kidney disease, stage 2 (mild); J44.9 Chronic obstructive pulmonary disease, unspecified; G47.30 Sleep apnea, unspecified; Z79.02 Long term (current) use of antithrombotics/antiplatelets; Z79.82 Long term (current) use of aspirin; Z79.899 Other long term (current) drug therapy; Z88.8 Allergy status to other drugs, medicaments and biological substances; Z82.49 Family history of ischemic heart disease and other diseases of the circulatory system
CPT/HCPCS: 36415; 71046; 78582; 80053; 82550; 82947; 83690; 83880; 84484; 85025; 85027; 85379; 85610; 85730; 93005; 93010; 93970; 94640; 94760; 96372; 96374; 96375; 96376; 99285-25; A9540; A9558; G0378; J1644; J1650; J2405; J3010; J3490

== ENCOUNTER 2018-04-11 21:59 | Emergency (ER) | payer OTHER ==
[~2018-04-11] VITALS: Ht 175.3 cm; Wt 131.5 kg
[~2018-04-11 21:59] MED LIST changes: +HUMALOG KW200 UNIT/1 SC
[2018-04-11] MEDS ORDERED: IMDUR (22:37)
[2018-04-11 22:46] LABS: BASOPHILS ABSOLUTE AUTO 0.06 K/mm3 (0.00-0.23); BASOPHILS PERCENT AUTO 1 % (0-2); EOSINOPHILS ABSOLUTE AUTO 0.57 K/mm3 (0.00-0.68); EOSINOPHILS PERCENT AUTO 5 % (0-6); Hematocrit 29.2 % (37.0-53.0); Hemoglobin 9.2 g/dL (13.5-17.5); IMMATURE GRAN ABSOLUTE AUTO 0.35 K/mm3 (0.00-0.10); IMMATURE GRAN PERCENT AUTO 3 % (0-1); LYMPHOCYTES ABSOLUTE AUTO 1.22 K/mm3 (0.84-5.20); LYMPHOCYTES PERCENT AUTO 11 % (21-46); MONOCYTES ABSOLUTE AUTO 0.73 K/mm3 (0.16-1.47); MONOCYTES PERCENT AUTO 7 % (4-13); Mean Corpuscular HGB Conc 31.5 g/dL (31.5-36.5); Mean Corpuscular Volume 92 fL (80-100); Mean Platelet Volume 9.1 fL (9.1-12.4); NEUTROPHILS ABSOLUTE AUTO 7.74 K/mm3 (1.96-9.15); NEUTROPHILS PERCENT AUTO 73 % (41-73); Platelet Count 110 K/mm3 (150-400); RDW Coefficient Variation 16.1 % (11.7-14.2); RDW Standard Deviation 54.6 fL (35.1-46.3); Red Blood Cell Count 3.17 M/mm3 (4.30-5.90); White Blood Cell Count 10.67 K/mm3 (4.00-11.30)
[2018-04-11 23:08] LABS: Alanine Aminotransfer (ALT/SGP 42 U/L (12-78); Albumin, Blood 2.8 g/dL (3.4-5.0); Albumin/Globulin Ratio 0.6 (0.8-1.8); Alk Phos 117 U/L (50-136); Anion Gap 6 mmol/L (6-16); Aspartate Aminotrans (AST/SGOT 32 U/L (12-37); Bilirubin, Total 0.2 mg/dL (0.1-1.0); Blood Urea Nitrogen 51 mg/dL (8-24); Bun/Creatinine Ratio 32.3 (12.0-20.0); CO2, Blood 30 mmol/L (21-32); Calcium, Blood 8.2 mg/dL (8.5-10.1); Chloride, Blood 100 mmol/L (98-108); Creatinine, Blood 1.58 mg/dL (0.60-1.20); Globulin, Blood 4.4 g/dL (2.2-4.0); Glomerular Filtration Rate 48 (60-); Glucose, Blood 304 mg/dL (70-99); Potassium, Blood 4.7 mmol/L (3.5-5.5); Sodium, Blood 136 mmol/L (136-145); Total Protein, Blood 7.2 g/dL (6.4-8.2); Troponin I <0.015 ng/mL (0.000-0.040)
[2018-04-12] MEDS ORDERED: DILT30 PO (02:42)
== END 2018-04-12 02:56 | disposition home or self-care (01) ==
LOC: ER 21:59
PROVIDERS: Emergency Medicine
DX: R07.89 Other chest pain (principal); I10 Essential (primary) hypertension; E11.9 Type 2 diabetes mellitus without complications; J44.9 Chronic obstructive pulmonary disease, unspecified; E78.5 Hyperlipidemia, unspecified; Z88.8 Allergy status to other drugs, medicaments and biological substances; Z88.6 Allergy status to analgesic agent; Z79.899 Other long term (current) drug therapy; Z79.01 Long term (current) use of anticoagulants; Z79.82 Long term (current) use of aspirin; Z79.4 Long term (current) use of insulin
CPT/HCPCS: 36415; 71046; 80053; 83690; 84484; 85025; 93005; 93010; 96374; 99285-25; J2405

== ENCOUNTER 2018-05-04 21:52 | Emergency (ER) | payer OTHER ==
[~2018-05-04] VITALS: Ht 175.3 cm; Wt 129.7 kg
[~2018-05-04 21:52] MED LIST changes: +AMLO10 PO; +DILT30 PO; +IMDUR; +Prednisone10 MG PO
[2018-05-04 22:53] LABS: BASOPHILS ABSOLUTE AUTO 0.02 K/mm3 (0.00-0.23); BASOPHILS PERCENT AUTO 0 % (0-2); EOSINOPHILS ABSOLUTE AUTO 0.29 K/mm3 (0.00-0.68); EOSINOPHILS PERCENT AUTO 3 % (0-6); Hematocrit 31.1 % (37.0-53.0); IMMATURE GRAN ABSOLUTE AUTO 0.32 K/mm3 (0.00-0.10); IMMATURE GRAN PERCENT AUTO 3 % (0-1); LYMPHOCYTES PERCENT AUTO 15 % (21-46); MONOCYTES ABSOLUTE AUTO 0.56 K/mm3 (0.16-1.47); MONOCYTES PERCENT AUTO 5 % (4-13); Mean Corpuscular HGB 28.6 pg (26.0-34.0); Mean Corpuscular HGB Conc 32.2 g/dL (31.5-36.5); Mean Corpuscular Volume 89 fL (80-100); Mean Platelet Volume 8.3 fL (9.1-12.4); NEUTROPHILS ABSOLUTE AUTO 8.37 K/mm3 (1.96-9.15); NEUTROPHILS PERCENT AUTO 74 % (41-73); Platelet Count 138 K/mm3 (150-400); RDW Coefficient Variation 15.7 % (11.7-14.2); RDW Standard Deviation 50.7 fL (35.1-46.3); White Blood Cell Count 11.26 K/mm3 (4.00-11.30)
[2018-05-04 23:13] LABS: Alanine Aminotransfer (ALT/SGP 85 U/L (12-78); Albumin, Blood 3.1 g/dL (3.4-5.0); Albumin/Globulin Ratio 0.8 (0.8-1.8); Alk Phos 137 U/L (50-136); Anion Gap 10 mmol/L (6-16); Aspartate Aminotrans (AST/SGOT 33 U/L (12-37); Bilirubin, Total 0.4 mg/dL (0.1-1.0); Blood Urea Nitrogen 40 mg/dL (8-24); Bun/Creatinine Ratio 29.6 (12.0-20.0); CO2, Blood 29 mmol/L (21-32); Calcium, Blood 8.1 mg/dL (8.5-10.1); Chloride, Blood 97 mmol/L (98-108); Creatinine, Blood 1.35 mg/dL (0.60-1.20); Globulin, Blood 3.8 g/dL (2.2-4.0); Glomerular Filtration Rate 58 (60-); Glucose, Blood 435 mg/dL (70-99); Potassium, Blood 3.7 mmol/L (3.5-5.5); Sodium, Blood 136 mmol/L (136-145); Total Protein, Blood 6.9 g/dL (6.4-8.2); Troponin I <0.015 ng/mL (0.000-0.040)
== END 2018-05-05 03:17 | disposition home or self-care (01) ==
LOC: ER 21:52
PROVIDERS: Emergency Medicine
DX: R06.00 Dyspnea, unspecified (principal); R18.8 Other ascites; R60.9 Edema, unspecified; Z88.8 Allergy status to other drugs, medicaments and biological substances; Z88.6 Allergy status to analgesic agent; Z79.899 Other long term (current) drug therapy; Z79.891 Long term (current) use of opiate analgesic; Z79.4 Long term (current) use of insulin; E11.9 Type 2 diabetes mellitus without complications; E66.9 Obesity, unspecified; F32.9 Major depressive disorder, single episode, unspecified; Z86.73 Personal history of transient ischemic attack (TIA), and cerebral infarction without residual deficits; I50.9 Heart failure, unspecified
CPT/HCPCS: 36415; 71046; 80053; 83880; 84484; 85025; 85379; 93005; 93010; 96374; 99284-25; J1940

== ENCOUNTER 2018-05-13 19:42 | Emergency (ER) | payer OTHER ==
[~2018-05-13] VITALS: Ht 175.3 cm; Wt 129.7 kg
[2018-05-13 20:29] LABS: BASOPHILS ABSOLUTE AUTO 0.04 K/mm3 (0.00-0.23); BASOPHILS PERCENT AUTO 1 % (0-2); EOSINOPHILS ABSOLUTE AUTO 0.19 K/mm3 (0.00-0.68); EOSINOPHILS PERCENT AUTO 2 % (0-6); Hematocrit 30.8 % (37.0-53.0); Hemoglobin 9.9 g/dL (13.5-17.5); IMMATURE GRAN PERCENT AUTO 5 % (0-1); LYMPHOCYTES ABSOLUTE AUTO 1.39 K/mm3 (0.84-5.20); LYMPHOCYTES PERCENT AUTO 16 % (21-46); MONOCYTES ABSOLUTE AUTO 0.73 K/mm3 (0.16-1.47); MONOCYTES PERCENT AUTO 8 % (4-13); Mean Corpuscular HGB 28.9 pg (26.0-34.0); Mean Corpuscular HGB Conc 32.1 g/dL (31.5-36.5); Mean Corpuscular Volume 90 fL (80-100); Mean Platelet Volume 8.7 fL (9.1-12.4); NEUTROPHILS ABSOLUTE AUTO 5.99 K/mm3 (1.96-9.15); NEUTROPHILS PERCENT AUTO 68 % (41-73); Platelet Count 145 K/mm3 (150-400); RDW Coefficient Variation 16.4 % (11.7-14.2); RDW Standard Deviation 53.7 fL (35.1-46.3); Red Blood Cell Count 3.42 M/mm3 (4.30-5.90); White Blood Cell Count 8.74 K/mm3 (4.00-11.30)
[2018-05-13 20:54] LABS: Troponin I <0.015 ng/mL (0.000-0.040)
[2018-05-13 20:57] LABS: Alanine Aminotransfer (ALT/SGP 50 U/L (12-78); Albumin, Blood 3.2 g/dL (3.4-5.0); Albumin/Globulin Ratio 0.8 (0.8-1.8); Alk Phos 141 U/L (50-136); Anion Gap 9 mmol/L (6-16); Aspartate Aminotrans (AST/SGOT 33 U/L (12-37); Bilirubin, Total 0.3 mg/dL (0.1-1.0); Blood Urea Nitrogen 44 mg/dL (8-24); Bun/Creatinine Ratio 28.4 (12.0-20.0); CO2, Blood 26 mmol/L (21-32); Calcium, Blood 8.7 mg/dL (8.5-10.1); Chloride, Blood 96 mmol/L (98-108); Creatinine, Blood 1.55 mg/dL (0.60-1.20); Globulin, Blood 4.1 g/dL (2.2-4.0); Glomerular Filtration Rate 49 (60-); Glucose, Blood 199 mg/dL (70-99); Potassium, Blood 4.9 mmol/L (3.5-5.5); Sodium, Blood 131 mmol/L (136-145); Total Protein, Blood 7.3 g/dL (6.4-8.2)
[2018-05-13] MEDS ORDERED: DULO30 PO (21:55)
[2018-05-13] MEDS ORDERED: DULO60 PO (21:55)
[2018-05-13 22:19] LABS: Influenza A Negative (NEGATIVE); Influenza B Negative (NEGATIVE)
== END 2018-05-13 23:00 | disposition home or self-care (01) ==
LOC: ER 19:42
PROVIDERS: Emergency Medicine
DX: M79.1 Myalgia (principal); E11.9 Type 2 diabetes mellitus without complications; F32.9 Major depressive disorder, single episode, unspecified; I50.9 Heart failure, unspecified; Z86.73 Personal history of transient ischemic attack (TIA), and cerebral infarction without residual deficits; Z88.8 Allergy status to other drugs, medicaments and biological substances; Z88.6 Allergy status to analgesic agent; Z79.899 Other long term (current) drug therapy; Z79.01 Long term (current) use of anticoagulants; Z79.52 Long term (current) use of systemic steroids; Z79.4 Long term (current) use of insulin
CPT/HCPCS: 36415; 71046; 80053; 83880; 84484; 85025; 87804; 93005; 93010; 99284-25

== ENCOUNTER 2018-05-14 09:38 | Day surgery (SDC) | payer OTHER ==
[~2018-05-14 09:38] MED LIST changes: +DULO30 PO
== END 2018-05-14 23:08 | disposition home or self-care (01) ==
LOC: US 09:38
DX: R18.8 Other ascites (principal); Z53.09 Procedure and treatment not carried out because of other contraindication
CPT/HCPCS: 76705

== ENCOUNTER 2018-05-14 22:09 | Emergency (ER) | payer OTHER ==
[~2018-05-14] VITALS: Ht 175.3 cm; Wt 127.5 kg
[2018-05-14 22:35] LABS: Calcium, Ionized (POC) 1.14 mmol/L (1.10-1.46); Chloride (POC) 93 mmol/L (98-108); Creatinine (POC) 1.6 mg/dL (0.8-1.3); Glucose (ISTAT POC) 312 mg/dL (70-99); Hemoglobin (POC) 9.5 g/dL (13.5-17.5); Potassium (POC) 4.7 mmol/L (3.5-5.5); Sodium (POC) 132 mmol/L (135-148); Total CO2 (POC) 30 mmol/L (21-32)
== END 2018-05-14 23:30 | disposition home or self-care (01) ==
LOC: ER 22:09
PROVIDERS: Emergency Medicine
DX: M79.1 Myalgia (principal); E11.9 Type 2 diabetes mellitus without complications; F32.9 Major depressive disorder, single episode, unspecified; I50.9 Heart failure, unspecified; Z88.8 Allergy status to other drugs, medicaments and biological substances; Z88.6 Allergy status to analgesic agent; Z79.899 Other long term (current) drug therapy; Z79.01 Long term (current) use of anticoagulants; Z79.4 Long term (current) use of insulin; Z86.73 Personal history of transient ischemic attack (TIA), and cerebral infarction without residual deficits
CPT/HCPCS: 36415; 80047; 82550; 85014; 99283

== ENCOUNTER → 2018-05-16 | Outpatient (CLI) | payer OTHER ==
[2018-05-16 15:50] LABS: Microalbumin, Urine Quant. <5.000 mg/L (0.000-20.000); Protein, Urine Quantitative <5.0 mg/dL (0.0-11.9)
== END | disposition home or self-care (01) ==
LOC: LAB SHORT 15:15 → LAB 15:15
PROVIDERS: Internal Medicine Nephrology
DX: N18.3 Chronic kidney disease, stage 3 (moderate) (principal); D63.1 Anemia in chronic kidney disease; N25.81 Secondary hyperparathyroidism of renal origin; E55.9 Vitamin D deficiency, unspecified; E78.00 Pure hypercholesterolemia, unspecified; R76.9 Abnormal immunological finding in serum, unspecified; R94.5 Abnormal results of liver function studies; R94.6 Abnormal results of thyroid function studies
CPT/HCPCS: 81050; 82043; 82570; 84156

== ENCOUNTER 2018-05-20 11:02 | Emergency (ER) | payer OTHER ==
[~2018-05-20] VITALS: Ht 175.3 cm; Wt 131.5 kg
[2018-05-20 12:02] LABS: BASOPHILS ABSOLUTE AUTO 0.05 K/mm3 (0.00-0.23); BASOPHILS PERCENT AUTO 1 % (0-2); EOSINOPHILS ABSOLUTE AUTO 0.13 K/mm3 (0.00-0.68); EOSINOPHILS PERCENT AUTO 1 % (0-6); Hematocrit 32.9 % (37.0-53.0); Hemoglobin 10.4 g/dL (13.5-17.5); IMMATURE GRAN ABSOLUTE AUTO 0.46 K/mm3 (0.00-0.10); IMMATURE GRAN PERCENT AUTO 4 % (0-1); LYMPHOCYTES ABSOLUTE AUTO 1.18 K/mm3 (0.84-5.20); LYMPHOCYTES PERCENT AUTO 11 % (21-46); MONOCYTES ABSOLUTE AUTO 0.68 K/mm3 (0.16-1.47); MONOCYTES PERCENT AUTO 7 % (4-13); Mean Corpuscular HGB 28.8 pg (26.0-34.0); Mean Corpuscular HGB Conc 31.6 g/dL (31.5-36.5); Mean Corpuscular Volume 91 fL (80-100); Mean Platelet Volume 8.6 fL (9.1-12.4); NEUTROPHILS ABSOLUTE AUTO 7.87 K/mm3 (1.96-9.15); NEUTROPHILS PERCENT AUTO 76 % (41-73); Platelet Count 131 K/mm3 (150-400); RDW Coefficient Variation 16.9 % (11.7-14.2); RDW Standard Deviation 56.9 fL (35.1-46.3); Red Blood Cell Count 3.61 M/mm3 (4.30-5.90); White Blood Cell Count 10.37 K/mm3 (4.00-11.30)
[2018-05-20 12:25] LABS: Alanine Aminotransfer (ALT/SGP 61 U/L (12-78); Albumin, Blood 3.1 g/dL (3.4-5.0); Albumin/Globulin Ratio 0.8 (0.8-1.8); Alk Phos 154 U/L (50-136); Anion Gap 8 mmol/L (6-16); Aspartate Aminotrans (AST/SGOT 48 U/L (12-37); Bilirubin, Total 0.4 mg/dL (0.1-1.0); Blood Urea Nitrogen 38 mg/dL (8-24); Bun/Creatinine Ratio 31.9 (12.0-20.0); CO2, Blood 32 mmol/L (21-32); Chloride, Blood 97 mmol/L (98-108); Creatinine, Blood 1.19 mg/dL (0.60-1.20); Globulin, Blood 3.9 g/dL (2.2-4.0); Glomerular Filtration Rate >60 (60-); Glucose, Blood 306 mg/dL (70-99); Potassium, Blood 5.2 mmol/L (3.5-5.5); Sodium, Blood 137 mmol/L (136-145)
[2018-05-20 12:26] LABS: Troponin I <0.015 ng/mL (0.000-0.040)
== END 2018-05-20 16:17 | disposition home or self-care (01) ==
LOC: ER 11:02
PROVIDERS: Emergency Medicine
DX: R06.00 Dyspnea, unspecified (principal); E11.65 Type 2 diabetes mellitus with hyperglycemia; I50.9 Heart failure, unspecified; F32.9 Major depressive disorder, single episode, unspecified; Z86.73 Personal history of transient ischemic attack (TIA), and cerebral infarction without residual deficits; Z79.899 Other long term (current) drug therapy; Z79.4 Long term (current) use of insulin; Z79.51 Long term (current) use of inhaled steroids; Z79.01 Long term (current) use of anticoagulants
CPT/HCPCS: 36415; 71046; 80053; 81000; 83880; 84484; 85025; 93005; 93010; 99285-25

== ENCOUNTER 2018-05-26 13:30 | Emergency (ER) | payer OTHER ==
[~2018-05-26] VITALS: Ht 175.3 cm; Wt 139.7 kg
[2018-05-26 14:03] LABS: BASOPHILS ABSOLUTE AUTO 0.05 K/mm3 (0.00-0.23); BASOPHILS PERCENT AUTO 0 % (0-2); EOSINOPHILS ABSOLUTE AUTO 0.06 K/mm3 (0.00-0.68); EOSINOPHILS PERCENT AUTO 1 % (0-6); Hematocrit 31.2 % (37.0-53.0); Hemoglobin 9.6 g/dL (13.5-17.5); IMMATURE GRAN ABSOLUTE AUTO 0.35 K/mm3 (0.00-0.10); IMMATURE GRAN PERCENT AUTO 3 % (0-1); LYMPHOCYTES ABSOLUTE AUTO 1.13 K/mm3 (0.84-5.20); LYMPHOCYTES PERCENT AUTO 10 % (21-46); MONOCYTES ABSOLUTE AUTO 0.58 K/mm3 (0.16-1.47); MONOCYTES PERCENT AUTO 5 % (4-13); Mean Corpuscular HGB 28.5 pg (26.0-34.0); Mean Corpuscular HGB Conc 30.8 g/dL (31.5-36.5); Mean Corpuscular Volume 93 fL (80-100); Mean Platelet Volume 8.8 fL (9.1-12.4); NEUTROPHILS ABSOLUTE AUTO 9.29 K/mm3 (1.96-9.15); NEUTROPHILS PERCENT AUTO 81 % (41-73); Platelet Count 137 K/mm3 (150-400); RDW Coefficient Variation 17.2 % (11.7-14.2); RDW Standard Deviation 57.1 fL (35.1-46.3); Red Blood Cell Count 3.37 M/mm3 (4.30-5.90); White Blood Cell Count 11.46 K/mm3 (4.00-11.30)
[2018-05-26 14:43] LABS: Alanine Aminotransfer (ALT/SGP 98 U/L (12-78); Albumin, Blood 3.1 g/dL (3.4-5.0); Albumin/Globulin Ratio 0.8 (0.8-1.8); Alk Phos 165 U/L (50-136); Anion Gap 7 mmol/L (6-16); Aspartate Aminotrans (AST/SGOT 72 U/L (12-37); Bilirubin, Total 0.4 mg/dL (0.1-1.0); Blood Urea Nitrogen 40 mg/dL (8-24); Bun/Creatinine Ratio 34.2 (12.0-20.0); CO2, Blood 31 mmol/L (21-32); Calcium, Blood 8.7 mg/dL (8.5-10.1); Chloride, Blood 98 mmol/L (98-108); Creatinine, Blood 1.17 mg/dL (0.60-1.20); Glomerular Filtration Rate >60 (60-); Glucose, Blood 286 mg/dL (70-99); Potassium, Blood 4.9 mmol/L (3.5-5.5); Sodium, Blood 136 mmol/L (136-145); Total Protein, Blood 7.1 g/dL (6.4-8.2); Troponin I <0.015 ng/mL (0.000-0.040)
== END 2018-05-26 16:18 | disposition home or self-care (01) ==
LOC: ER 13:30
PROVIDERS: Emergency Medicine
DX: I11.0 Hypertensive heart disease with heart failure (principal); I50.9 Heart failure, unspecified; E66.9 Obesity, unspecified; G89.29 Other chronic pain; I25.10 Atherosclerotic heart disease of native coronary artery without angina pectoris; R60.0 Localized edema; Z68.42 Body mass index [BMI] 45.0-49.9, adult; E78.5 Hyperlipidemia, unspecified; E11.9 Type 2 diabetes mellitus without complications; J44.9 Chronic obstructive pulmonary disease, unspecified
CPT/HCPCS: 36415; 71046; 80053; 83880; 84484; 85025; 93005; 93010; 99285-25; J1940

== ENCOUNTER 2018-08-19 23:26 | Emergency (ER) | payer OTHER ==
[~2018-08-19] VITALS: Ht 175.3 cm; Wt 128.4 kg
[~2018-08-19 23:26] MED LIST changes: -ATOR80 PO; +BACL10 PO; +CALC.25 PO; +HYDPAM100 PO; +Metformin HCl500 MG PO; -PREG75 PO; +ROBITUSSIN NIG237 ML PO; +Robaxin-750750 MG PO
[2018-08-19] MEDS ORDERED: METCAR500 PO (23:46)
[2018-08-19] MEDS ORDERED: BUME2 PO (23:46)
[2018-08-19] MEDS ORDERED: METO2.5 PO (23:47)
[2018-08-19] MEDS ORDERED: OXYC1TAB11 PO (23:47)
[2018-08-20 00:20] LABS: BASOPHILS ABSOLUTE AUTO 0.03 K/mm3 (0.00-0.23); BASOPHILS PERCENT AUTO 0 % (0-2); EOSINOPHILS ABSOLUTE AUTO 0.24 K/mm3 (0.00-0.68); EOSINOPHILS PERCENT AUTO 2 % (0-6); Hematocrit 29.9 % (37.0-53.0); Hemoglobin 9.7 g/dL (13.5-17.5); IMMATURE GRAN ABSOLUTE AUTO 0.24 K/mm3 (0.00-0.10); IMMATURE GRAN PERCENT AUTO 2 % (0-1); LYMPHOCYTES ABSOLUTE AUTO 1.59 K/mm3 (0.84-5.20); LYMPHOCYTES PERCENT AUTO 12 % (21-46); MONOCYTES ABSOLUTE AUTO 0.89 K/mm3 (0.16-1.47); MONOCYTES PERCENT AUTO 7 % (4-13); Mean Corpuscular HGB 28.6 pg (26.0-34.0); Mean Corpuscular HGB Conc 32.4 g/dL (31.5-36.5); Mean Corpuscular Volume 88 fL (80-100); Mean Platelet Volume 9.3 fL (9.1-12.4); NEUTROPHILS ABSOLUTE AUTO 10.69 K/mm3 (1.96-9.15); NEUTROPHILS PERCENT AUTO 78 % (41-73); Platelet Count 115 K/mm3 (150-400); RDW Coefficient Variation 15.6 % (11.7-14.2); RDW Standard Deviation 50.4 fL (35.1-46.3); Red Blood Cell Count 3.39 M/mm3 (4.30-5.90); White Blood Cell Count 13.68 K/mm3 (4.00-11.30)
[2018-08-20 00:40] LABS: Alanine Aminotransfer (ALT/SGP 64 U/L (12-78); Albumin, Blood 3.3 g/dL (3.4-5.0); Albumin/Globulin Ratio 0.8 (0.8-1.8); Alk Phos 142 U/L (50-136); Anion Gap 13 mmol/L (6-16); Aspartate Aminotrans (AST/SGOT 48 U/L (12-37); Bilirubin, Total 0.3 mg/dL (0.1-1.0); Blood Urea Nitrogen 121 mg/dL (8-24); Bun/Creatinine Ratio 72.5 (12.0-20.0); CO2, Blood 29 mmol/L (21-32); Calcium, Blood 9.1 mg/dL (8.5-10.1); Chloride, Blood 90 mmol/L (98-108); Creatinine, Blood 1.67 mg/dL (0.60-1.20); Globulin, Blood 4.1 g/dL (2.2-4.0); Glomerular Filtration Rate 45 (60-); Glucose, Blood 460 mg/dL (70-99); Potassium, Blood 4.3 mmol/L (3.5-5.5); Sodium, Blood 132 mmol/L (136-145); Total Protein, Blood 7.4 g/dL (6.4-8.2); Troponin I <0.015 ng/mL (0.000-0.040)
== END 2018-08-20 02:02 | disposition home or self-care (01) ==
LOC: ER 23:26
PROVIDERS: Emergency Medicine
DX: R07.89 Other chest pain (principal); Z88.8 Allergy status to other drugs, medicaments and biological substances; Z88.6 Allergy status to analgesic agent; Z79.899 Other long term (current) drug therapy; Z79.4 Long term (current) use of insulin; Z79.891 Long term (current) use of opiate analgesic; E11.9 Type 2 diabetes mellitus without complications; F32.9 Major depressive disorder, single episode, unspecified; Z86.73 Personal history of transient ischemic attack (TIA), and cerebral infarction without residual deficits; E66.9 Obesity, unspecified; I50.9 Heart failure, unspecified
CPT/HCPCS: 36415; 71046; 80053; 83690; 83880; 84484; 85025; 93005; 93010; 96374; 99285-25; J1885

== ENCOUNTER 2018-08-27 22:09 | Emergency (ER) | payer OTHER ==
[~2018-08-27] VITALS: Ht 175.3 cm; Wt 131.5 kg
[~2018-08-27 22:09] MED LIST changes: +METCAR500 PO; +OXYC1TAB11 PO
[2018-08-28] MEDS ORDERED: BUME1 PO (01:05)
== END 2018-08-28 01:15 | disposition home or self-care (01) ==
LOC: ER 22:09
DX: R51 Headache (principal); Z88.8 Allergy status to other drugs, medicaments and biological substances; Z88.6 Allergy status to analgesic agent; Z79.899 Other long term (current) drug therapy; Z79.4 Long term (current) use of insulin; Z79.891 Long term (current) use of opiate analgesic; E11.9 Type 2 diabetes mellitus without complications; F32.9 Major depressive disorder, single episode, unspecified; Z86.73 Personal history of transient ischemic attack (TIA), and cerebral infarction without residual deficits; E66.9 Obesity, unspecified; I50.9 Heart failure, unspecified
CPT/HCPCS: 70450; 96372; 99284-25; J1200; J1885

== ENCOUNTER 2018-09-27 20:07 | Emergency (ER) | payer OTHER ==
[~2018-09-27] VITALS: Ht 175.3 cm; Wt 133.8 kg
[~2018-09-27 20:07] MED LIST changes: +BUME1 PO
[2018-09-27 20:33] LABS: BASOPHILS ABSOLUTE AUTO 0.04 K/mm3 (0.00-0.23); BASOPHILS PERCENT AUTO 0 % (0-2); EOSINOPHILS ABSOLUTE AUTO 0.26 K/mm3 (0.00-0.68); EOSINOPHILS PERCENT AUTO 3 % (0-6); Hematocrit 29.2 % (37.0-53.0); Hemoglobin 9.1 g/dL (13.5-17.5); IMMATURE GRAN PERCENT AUTO 3 % (0-1); LYMPHOCYTES ABSOLUTE AUTO 1.39 K/mm3 (0.84-5.20); LYMPHOCYTES PERCENT AUTO 15 % (21-46); MONOCYTES ABSOLUTE AUTO 0.73 K/mm3 (0.16-1.47); MONOCYTES PERCENT AUTO 8 % (4-13); Mean Corpuscular HGB 27.9 pg (26.0-34.0); Mean Corpuscular HGB Conc 31.2 g/dL (31.5-36.5); Mean Corpuscular Volume 90 fL (80-100); Mean Platelet Volume 9.9 fL (9.1-12.4); NEUTROPHILS ABSOLUTE AUTO 6.59 K/mm3 (1.96-9.15); NEUTROPHILS PERCENT AUTO 71 % (41-73); Platelet Count 146 K/mm3 (150-400); RDW Coefficient Variation 17.4 % (11.7-14.2); RDW Standard Deviation 55.8 fL (35.1-46.3); Red Blood Cell Count 3.26 M/mm3 (4.30-5.90); White Blood Cell Count 9.31 K/mm3 (4.00-11.30)
[2018-09-27 20:47] LABS: Alanine Aminotransfer (ALT/SGP 60 U/L (12-78); Albumin, Blood 2.9 g/dL (3.4-5.0); Albumin/Globulin Ratio 0.6 (0.8-1.8); Alk Phos 130 U/L (50-136); Anion Gap 10 mmol/L (6-16); Aspartate Aminotrans (AST/SGOT 53 U/L (12-37); Bilirubin, Total 0.5 mg/dL (0.1-1.0); Blood Urea Nitrogen 52 mg/dL (8-24); Bun/Creatinine Ratio 39.7 (12.0-20.0); CO2, Blood 32 mmol/L (21-32); Calcium, Blood 8.8 mg/dL (8.5-10.1); Chloride, Blood 94 mmol/L (98-108); Creatinine, Blood 1.31 mg/dL (0.60-1.20); Globulin, Blood 4.5 g/dL (2.2-4.0); Glomerular Filtration Rate 59 (60-); Glucose, Blood 229 mg/dL (70-99); Potassium, Blood 4.3 mmol/L (3.5-5.5); Sodium, Blood 136 mmol/L (136-145); Total Protein, Blood 7.4 g/dL (6.4-8.2); Troponin I <0.015 ng/mL (0.000-0.040)
[2018-09-27] MEDS ORDERED: Pepcid40 MG PO (22:28)
== END 2018-09-27 23:03 | disposition home or self-care (01) ==
LOC: ER 20:07
PROVIDERS: Emergency Medicine
DX: R07.9 Chest pain, unspecified (principal); M79.7 Fibromyalgia; G89.29 Other chronic pain; I25.10 Atherosclerotic heart disease of native coronary artery without angina pectoris; Z88.8 Allergy status to other drugs, medicaments and biological substances; Z88.6 Allergy status to analgesic agent; Z79.899 Other long term (current) drug therapy; Z79.4 Long term (current) use of insulin; Z79.891 Long term (current) use of opiate analgesic; E78.5 Hyperlipidemia, unspecified; E11.9 Type 2 diabetes mellitus without complications; J44.9 Chronic obstructive pulmonary disease, unspecified; I50.9 Heart failure, unspecified; I11.0 Hypertensive heart disease with heart failure; F32.9 Major depressive disorder, single episode, unspecified
CPT/HCPCS: 71046; 80053; 83880; 84484; 85025; 93005; 93010; 99285-25

== ENCOUNTER 2018-09-28 21:53 | Observation (INO) | payer OTHER ==
[~2018-09-28] VITALS: Ht 175.3 cm; Wt 136.3 kg
[~2018-09-28 21:53] MED LIST changes: +Pepcid40 MG PO
[2018-09-28 22:23] LABS: BASOPHILS ABSOLUTE AUTO 0.03 K/mm3 (0.00-0.23); BASOPHILS PERCENT AUTO 0 % (0-2); EOSINOPHILS ABSOLUTE AUTO 0.23 K/mm3 (0.00-0.68); EOSINOPHILS PERCENT AUTO 2 % (0-6); Hematocrit 29.3 % (37.0-53.0); IMMATURE GRAN ABSOLUTE AUTO 0.19 K/mm3 (0.00-0.10); IMMATURE GRAN PERCENT AUTO 2 % (0-1); LYMPHOCYTES ABSOLUTE AUTO 0.83 K/mm3 (0.84-5.20); LYMPHOCYTES PERCENT AUTO 8 % (21-46); MONOCYTES ABSOLUTE AUTO 0.82 K/mm3 (0.16-1.47); MONOCYTES PERCENT AUTO 8 % (4-13); Mean Corpuscular HGB 28.3 pg (26.0-34.0); Mean Corpuscular HGB Conc 30.7 g/dL (31.5-36.5); Mean Corpuscular Volume 92 fL (80-100); Mean Platelet Volume 9.3 fL (9.1-12.4); NEUTROPHILS PERCENT AUTO 81 % (41-73); Platelet Count 131 K/mm3 (150-400); RDW Coefficient Variation 17.5 % (11.7-14.2); RDW Standard Deviation 57.9 fL (35.1-46.3); Red Blood Cell Count 3.18 M/mm3 (4.30-5.90)
[2018-09-28 22:39] LABS: International Normalized Ratio 1.06; Prothrombin Time Results 11.2 Sec (9.7-11.5)
[2018-09-28 22:42] LABS: Albumin/Globulin Ratio 0.7 (0.8-1.8); Bilirubin, Total 0.5 mg/dL (0.1-1.0); Bun/Creatinine Ratio 33.1 (12.0-20.0); Calcium, Blood 9.3 mg/dL (8.5-10.1); Creatinine, Blood 1.51 mg/dL (0.60-1.20); Globulin, Blood 4.5 g/dL (2.2-4.0); Potassium, Blood 4.3 mmol/L (3.5-5.5); Total Protein, Blood 7.5 g/dL (6.4-8.2)
[2018-09-28 22:50] LABS: Influenza A Negative (NEGATIVE); Influenza B Negative (NEGATIVE)
[2018-09-28 23:58] LABS: Source, Urine Clean Catch
[2018-09-29 00:04] LABS: Bilirubin, Urine Neg (Neg); Blood, Urine Neg (Neg); Glucose Qualitative, Urine Neg (Neg); Ketones, Urine Neg (Neg); Leukocyte Esterase, Urine Neg (Neg); Nitrite, Urine Neg (Neg); Protein, Urine Neg (Neg); Urobilinogen, Urine NORM (Normal)
[2018-09-29 00:06] LABS: Appearance, Urine Clear (Clear); Color, Urine Yellow (P-Yellow)
[2018-09-29] MEDS ORDERED: DULO30 PO (02:56)
--- NOTE | 2018-09-29 06:31 | NUR ---
NOC SHIFT SUMMARY THIS PT WAS ADMITTED DURING THE NIGHT FOR RENAL FAILURE AND POSSIBLE PNEUMONIA. AT 0320 RECIEVED CALL FROM LAB WITH CRITICAL VALUE LACTIC ACID OF 2.1. THIS IS DOWN FROM PREVIOUS VALUE OF 2.7. CALLED RESULTS TO [place], HE VERBALIZED UNDERSTANDING, NO CHANGES IN TREATMENT AT THIS TIME. AT 0306 PT COMPLAINED OF FEELING IF HIS BLOOD SUGAR WAS LOW, SUGARS TESTED AND FOUND TO BE AT 42. THIS WAS TREATED WITH ORANGE JUICE WITH 3 SUGAR PACKETS, TWO PACKS OF PEANUT BUTTER, AND A SANDWITCH. BLOOD SUGARS RECHECKED AT 90. THERE HAVE ALSO BEEN SEVERAL DISCREPENCIES WITH MED REC. HAVE CALLED TO [facility] FOR MED LIST. THEY ARE FAXING LIST BUT OF NOW HAVE NOT RECIEVED. PT MARY APPEARS IN NO ACUTE DISTRESS. WILL CONTINUE TO MONITOR. WITH MEDICATOINS
[2018-09-29 06:44] LABS: BASOPHILS ABSOLUTE AUTO 0.02 K/mm3 (0.00-0.23); BASOPHILS PERCENT AUTO 0 % (0-2); EOSINOPHILS ABSOLUTE AUTO 0.16 K/mm3 (0.00-0.68); EOSINOPHILS PERCENT AUTO 2 % (0-6); Hematocrit 27.6 % (37.0-53.0); Hemoglobin 8.4 g/dL (13.5-17.5); IMMATURE GRAN ABSOLUTE AUTO 0.21 K/mm3 (0.00-0.10); IMMATURE GRAN PERCENT AUTO 2 % (0-1); LYMPHOCYTES ABSOLUTE AUTO 1.46 K/mm3 (0.84-5.20); LYMPHOCYTES PERCENT AUTO 14 % (21-46); MONOCYTES ABSOLUTE AUTO 1.16 K/mm3 (0.16-1.47); MONOCYTES PERCENT AUTO 11 % (4-13); Mean Corpuscular HGB 28.2 pg (26.0-34.0); Mean Corpuscular HGB Conc 30.4 g/dL (31.5-36.5); Mean Corpuscular Volume 93 fL (80-100); Mean Platelet Volume 8.6 fL (9.1-12.4); NEUTROPHILS ABSOLUTE AUTO 7.69 K/mm3 (1.96-9.15); NEUTROPHILS PERCENT AUTO 72 % (41-73); Platelet Count 119 K/mm3 (150-400); RDW Coefficient Variation 17.9 % (11.7-14.2); RDW Standard Deviation 59.7 fL (35.1-46.3); Red Blood Cell Count 2.98 M/mm3 (4.30-5.90)
[2018-09-29 07:01] LABS: Bun/Creatinine Ratio 31.9 (12.0-20.0); Calcium, Blood 8.7 mg/dL (8.5-10.1); Creatinine, Blood 1.44 mg/dL (0.60-1.20); Potassium, Blood 4.2 mmol/L (3.5-5.5)
[2018-09-29] MEDS ORDERED: Aspirin EC81 MG PO (08:16)
[2018-09-29] MEDS ORDERED: Ferrous Sulfat325 MG PO (08:32)
[2018-09-29] MEDS ORDERED: LIDOCAINE1 EACH TOP (08:37)
[2018-09-29] MEDS ORDERED: METO100ER PO (08:43)
[2018-09-29] MEDS ORDERED: PANT40 PO (08:45)
[2018-09-29] MEDS ORDERED: CHOL10002 PO (08:55)
[2018-09-29] MEDS ORDERED: HYDRA50 PO (08:57)
[2018-09-29] MEDS ORDERED: POTA20PAC PO (09:01)
[2018-09-29] MEDS ORDERED: Senna-Docusate1 EACH PO (09:02)
[2018-09-29] MEDS ORDERED: Robaxin-750750 MG PO (09:03)
[2018-09-29] MEDS ORDERED: BISA10S PR (09:07)
[2018-09-29] MEDS ORDERED: BUTALBITAL-ACE1 EAC1 PO (09:09)
[2018-09-29] MEDS ORDERED: Calcium Carbon500 M1 PO (09:09)
[2018-09-29] MEDS ORDERED: ITCH RELIEF15 GM TOP (09:11)
[2018-09-29] MEDS ORDERED: DEXT40GEL PO (09:12)
[2018-09-29] MEDS ORDERED: ALBU3IS INH (09:13)
[2018-09-29] MEDS ORDERED: LORA1 PO (09:14)
[2018-09-29] MEDS ORDERED: KETO15TC TOP (09:14)
[2018-09-29] MEDS ORDERED: MELA3 PO (09:15)
[2018-09-29] MEDS ORDERED: MIRALAX17 GM PO (09:16)
[2018-09-29] MEDS ORDERED: NITR.6SL SL (09:17)
[2018-09-29] MEDS ORDERED: NYST100000 PO (09:18)
[2018-09-29] MEDS ORDERED: ONDA4 PO (09:18)
--- NOTE | 2018-09-29 19:51 | NUR ---
SHIFT SUMMARY- PT HOME MED REC COMPLETED THIS MORNING BY THE MEDIA CONSULTANT, MULTIPLE MEDICATION CHANGES. PT ALERT AND ORIENTED AND HAD HEPRIN FOR DVT PROFILAXIS. PT STATED HE ALWAYS HAS PAIN, PAIN MEDS SCHEDULED. INFORMED PHARMACY AND DR OF THE COMPLETED MED REC, MEDICATIONS CHANGED IN THE EMAR BY DR SANCHEZ. PT LACTIC IS TRENDING DOWN. PT BG WAS 42 LAST NIGHT UP TO 87 THIS MORNING, MORNING INSULIN HELD, NOON COVERAGE WAS 3 UNITS AND DINNER WAS 9 UNITS PT BG 327. PT ATE ALL FOOD FOR ALL MEALS TODAY. PT SPOUSE AT THE BEDSIDE, STATED SHE WILL SHOWER THE PT IF STAFF CAN WRAP THE IV, PASSED ON TO ABA ARAGON IN BEDSIDE REPORT.
--- NOTE | 2018-09-30 05:04 | NUR ---
SHIFT SUMMARY PAIN IN RT. HIP IS NOT WELL CONTROLLED. POLYPHARMACY IS OF CONCERN. PAIN MEDICATION IS SCHEDULED. PT ADMITTED FOR ACUTE RENAL FAILURE/SEPSIS. HX:CKD-[address] HYDE, HTN, DIABETES - ACHS W/INSULIN COVERAGE. PT ON 1000 ML FLUID RESTRICTION PER DAY. HE WILL DC TO [facility] FOR REHABILITATION, THEN WILL RETURN HOME WITH HIS . TELEMETRY LEADS DETACH FREQUENTLY THROUGHOUT SHIFT DUE TO PT'S PERIODS OF DIAPHORESIS. O2 RUNNING VIA NC AT 2 LPM. IV IN RT ARM IS POSITIONAL.
[2018-09-30 05:06] LABS: BASOPHILS ABSOLUTE AUTO 0.02 K/mm3 (0.00-0.23); BASOPHILS PERCENT AUTO 0 % (0-2); EOSINOPHILS ABSOLUTE AUTO 0.18 K/mm3 (0.00-0.68); EOSINOPHILS PERCENT AUTO 3 % (0-6); Hematocrit 24.4 % (37.0-53.0); Hemoglobin 7.4 g/dL (13.5-17.5); IMMATURE GRAN ABSOLUTE AUTO 0.14 K/mm3 (0.00-0.10); IMMATURE GRAN PERCENT AUTO 2 % (0-1); LYMPHOCYTES PERCENT AUTO 15 % (21-46); MONOCYTES ABSOLUTE AUTO 0.64 K/mm3 (0.16-1.47); MONOCYTES PERCENT AUTO 11 % (4-13); Mean Corpuscular HGB 28.4 pg (26.0-34.0); Mean Corpuscular HGB Conc 30.3 g/dL (31.5-36.5); Mean Corpuscular Volume 94 fL (80-100); Mean Platelet Volume 8.9 fL (9.1-12.4); NEUTROPHILS PERCENT AUTO 69 % (41-73); Platelet Count 118 K/mm3 (150-400); RDW Coefficient Variation 18.4 % (11.7-14.2); RDW Standard Deviation 62.4 fL (35.1-46.3); Red Blood Cell Count 2.61 M/mm3 (4.30-5.90); White Blood Cell Count 5.98 K/mm3 (4.00-11.30)
[2018-09-30 05:22] LABS: Anion Gap 6 mmol/L (6-16); Blood Urea Nitrogen 39 mg/dL (8-24); CO2, Blood 33 mmol/L (21-32); Chloride, Blood 101 mmol/L (98-108); Creatinine, Blood 1.22 mg/dL (0.60-1.20); Glomerular Filtration Rate >60 (60-); Glucose, Blood 352 mg/dL (70-99); Potassium, Blood 4.5 mmol/L (3.5-5.5); Sodium, Blood 140 mmol/L (136-145)
--- NOTE | 2018-09-30 15:24 | NUR ---
Chart review for pt needs. Attempted to speak to pt regarding advanced directive. He is in the process of discharge. On previous hospitalizations, Luis Alfredo has been adamant he wants all heroic measures.
--- NOTE | 2018-09-30 15:50 | NUR ---
PATIENT D/C'D TO [facility] VIA [facility]. VSS UPON D/C. D/C PACKET AND HARD SCRIPT SENT IN PACKET WITH NETWORK ENGINEER. IV D/C'D PRIOR TO D/C. REPORT CALLED TO ISAAC AT [facility]. PATIENT D/C'D ON 2LO2.
== END 2018-09-30 15:48 ==
LOC: ER 21:53 → MEDS 22:53 → ENPENDDIS 09-30 11:19 → MEDS 09-30 13:28
PROVIDERS: Emergency Medicine; Hospitalist; ADMIT Hospitalist
DX: N17.9 Acute kidney failure, unspecified (principal); I11.0 Hypertensive heart disease with heart failure; I50.22 Chronic systolic (congestive) heart failure; E87.2 Acidosis; G47.33 Obstructive sleep apnea (adult) (pediatric); E11.40 Type 2 diabetes mellitus with diabetic neuropathy, unspecified; I25.10 Atherosclerotic heart disease of native coronary artery without angina pectoris; E78.5 Hyperlipidemia, unspecified; J44.9 Chronic obstructive pulmonary disease, unspecified; F32.9 Major depressive disorder, single episode, unspecified; E66.01 Morbid (severe) obesity due to excess calories; Z79.4 Long term (current) use of insulin; Z99.81 Dependence on supplemental oxygen; Z99.89 Dependence on other enabling machines and devices; Z86.73 Personal history of transient ischemic attack (TIA), and cerebral infarction without residual deficits; Z79.899 Other long term (current) drug therapy; Z79.02 Long term (current) use of antithrombotics/antiplatelets; Z79.82 Long term (current) use of aspirin; Z68.41 Body mass index [BMI] 40.0-44.9, adult
CPT/HCPCS: 36415; 71046; 80048; 80053; 81003; 82947; 83605; 84145; 84484; 85025; 85610; 85730; 87040; 87086; 87804; 93005; 93010; 94640; 94760; 96361; 96365; 97163; 97530; 99285-25; G0378; J0696; J1644; J7030; J7120

== ENCOUNTER 2018-10-02 19:51 | Observation (INO) | payer OTHER ==
[~2018-10-02] VITALS: Ht 175.3 cm; Wt 136.1 kg
[~2018-10-02 19:51] MED LIST changes: +ALBU3IS INH; +BUTALBITAL-ACE1 EAC1 PO; +Calcium Carbon500 M1 PO; +DEXT40GEL PO; +Ferrous Sulfat325 MG PO; +HYDRA50 PO; +ITCH RELIEF15 GM TOP; +KETO15TC TOP; +LIDOCAINE1 EACH TOP; +MELA3 PO; +MIRALAX17 GM PO; +NYST100000 PO; +ONDA4 PO; +POTA20PAC PO; +Senna-Docusate1 EACH PO
[2018-10-02 20:25] LABS: BASOPHILS ABSOLUTE AUTO 0.03 K/mm3 (0.00-0.23); BASOPHILS PERCENT AUTO 0 % (0-2); EOSINOPHILS ABSOLUTE AUTO 0.21 K/mm3 (0.00-0.68); EOSINOPHILS PERCENT AUTO 3 % (0-6); Hematocrit 26.3 % (37.0-53.0); IMMATURE GRAN ABSOLUTE AUTO 0.38 K/mm3 (0.00-0.10); IMMATURE GRAN PERCENT AUTO 5 % (0-1); LYMPHOCYTES ABSOLUTE AUTO 1.14 K/mm3 (0.84-5.20); LYMPHOCYTES PERCENT AUTO 14 % (21-46); MONOCYTES ABSOLUTE AUTO 0.65 K/mm3 (0.16-1.47); MONOCYTES PERCENT AUTO 8 % (4-13); Mean Corpuscular HGB 28.5 pg (26.0-34.0); Mean Corpuscular HGB Conc 30.4 g/dL (31.5-36.5); Mean Corpuscular Volume 94 fL (80-100); Mean Platelet Volume 8.8 fL (9.1-12.4); NEUTROPHILS PERCENT AUTO 70 % (41-73); Platelet Count 143 K/mm3 (150-400); RDW Standard Deviation 61.3 fL (35.1-46.3); Red Blood Cell Count 2.81 M/mm3 (4.30-5.90); White Blood Cell Count 8.11 K/mm3 (4.00-11.30)
[2018-10-02 20:51] LABS: Alanine Aminotransfer (ALT/SGP 64 U/L (12-78); Albumin, Blood 2.6 g/dL (3.4-5.0); Albumin/Globulin Ratio 0.6 (0.8-1.8); Alk Phos 137 U/L (50-136); Anion Gap 4 mmol/L (6-16); Aspartate Aminotrans (AST/SGOT 60 U/L (12-37); Bilirubin, Total 0.6 mg/dL (0.1-1.0); Blood Urea Nitrogen 35 mg/dL (8-24); Bun/Creatinine Ratio 24.8 (12.0-20.0); CO2, Blood 34 mmol/L (21-32); Calcium, Blood 8.6 mg/dL (8.5-10.1); Chloride, Blood 102 mmol/L (98-108); Creatinine, Blood 1.41 mg/dL (0.60-1.20); Globulin, Blood 4.4 g/dL (2.2-4.0); Glomerular Filtration Rate 55 (60-); Glucose, Blood 94 mg/dL (70-99); Potassium, Blood 4.1 mmol/L (3.5-5.5); Sodium, Blood 140 mmol/L (136-145); Troponin I <0.015 ng/mL (0.000-0.040)
[2018-10-02] MEDS ORDERED: **INCOMPLETE MED REC (22:23)
[2018-10-02] MEDS ORDERED: FAMO40 PO (22:39)
[2018-10-02] MEDS ORDERED: BUME2 PO (22:49)
[2018-10-02] MEDS ORDERED: CHOL10002 PO (22:51)
[2018-10-02] MEDS ORDERED: Ropinirole HCl0.5 MG PO (22:52)
[2018-10-02] MEDS ORDERED: PREVNAR 13 SYR0.5 ML IM (22:52)
[2018-10-02] MEDS ORDERED: LIDO5TO TOP (22:55)
[2018-10-02] MEDS ORDERED: Humulin R500 UNIT/1 SC (22:57)
[2018-10-03 01:38] LABS: Adenovirus Not Detected (NOT DETECT); Bordetella pertussis Not Detected (NOT DETECT); Chlamydophila pneumoniae Not Detected (NOT DETECT); Coronavirus 229E Not Detected (NOT DETECT); Coronavirus HKU1 Not Detected (NOT DETECT); Coronavirus NL63 Not Detected (NOT DETECT); Coronavirus OC43 Not Detected (NOT DETECT); Human Metapneumovirus Not Detected (NOT DETECT); Human Rhinovirus/Enterovirus Not Detected (NOT DETECT); Influenza A Not Detected (NOT DETECT); Influenza A/2009-H1 Not Detected (NOT DETECT); Influenza A/H1 Not Detected (NOT DETECT); Influenza A/H3 Not Detected (NOT DETECT); Influenza B Not Detected (NOT DETECT); Mycoplasma pneumoniae Not Detected (NOT DETECT); Parainfluenza Virus 1 Not Detected (NOT DETECT); Parainfluenza Virus 2 Not Detected (NOT DETECT); Parainfluenza Virus 3 Not Detected (NOT DETECT); Parainfluenza Virus 4 Not Detected (NOT DETECT); Respiratory Syncytial Virus Not Detected (NOT DETECT)
[2018-10-03 06:04] LABS: Source, Urine Clean Catch
[2018-10-03 06:05] LABS: Hematocrit 28.5 % (37.0-53.0); Hemoglobin 8.6 g/dL (13.5-17.5); Mean Corpuscular HGB 28.1 pg (26.0-34.0); Mean Corpuscular HGB Conc 30.2 g/dL (31.5-36.5); Mean Corpuscular Volume 93 fL (80-100); Platelet Count 150 K/mm3 (150-400); RDW Coefficient Variation 18.1 % (11.7-14.2); RDW Standard Deviation 61.2 fL (35.1-46.3); Red Blood Cell Count 3.06 M/mm3 (4.30-5.90); White Blood Cell Count 8.58 K/mm3 (4.00-11.30)
[2018-10-03 06:10] LABS: Appearance, Urine Clear (Clear); Bilirubin, Urine Neg (Neg); Blood, Urine Neg (Neg); Color, Urine Yellow (P-Yellow); Glucose Qualitative, Urine Neg (Neg); Ketones, Urine Neg (Neg); Leukocyte Esterase, Urine Neg (Neg); Nitrite, Urine Neg (Neg); Protein, Urine Neg (Neg); Specific Gravity, Urine 1.015 (1.003-1.022); Urobilinogen, Urine NORM (Normal); pH, Urine 6.5 (5.0-8.0)
[2018-10-03 06:11] LABS: CPK Creatine Kinase 70 U/L (39-308); Troponin I <0.015 ng/mL (0.000-0.040)
[2018-10-03 06:13] LABS: Albumin, Blood 2.6 g/dL (3.4-5.0); Albumin/Globulin Ratio 0.6 (0.8-1.8); Bilirubin, Total 0.6 mg/dL (0.1-1.0); Bun/Creatinine Ratio 28.2 (12.0-20.0); Calcium, Blood 8.7 mg/dL (8.5-10.1); Creatinine, Blood 1.31 mg/dL (0.60-1.20); Globulin, Blood 4.3 g/dL (2.2-4.0); Potassium, Blood 4.4 mmol/L (3.5-5.5); Total Protein, Blood 6.9 g/dL (6.4-8.2)
--- NOTE | 2018-10-03 06:41 | NUR ---
SHIFT SUMMARY PT ARRIVED TO ROOM APPROX 2200. LETHARGIC DOZING ON AND OFF VERY EASILY. RECEIVED 1 UNIT OF PRBC'S NO TRANSFUSION REACTION. 2L O2 NC. REFUSED BIPAP. SAID HE WAS HAVING HARD TIME BREATHING LYING DOWN SO GOT HIM A RECLINER TO RECLINE IN SO HE SAT IN THAT AND DOZED ON AND OFF. STATES HE HAS BEEN HAVING BIG TWITCHES AT TIMES AND SOME WITNESSED. USING URINAL. SBA
[2018-10-03] MEDS ORDERED: LIDOCAINE PAIN1 EACH TOP (09:50)
--- NOTE | 2018-10-03 09:59 | NUR ---
NOTIFIED DR. OROSCO PT C/O PAIN IN HIS R HIP WHICH HE REPORTS TAKING PERCOCET 10/[address] OROSCO SAID OK TO ORDER HOME DOSE OF PERCOCET. NO OTHER NEW ORDERS AT THIS TIME.
[2018-10-03 12:53] LABS: CPK Creatine Kinase 75 U/L (39-308); Troponin I <0.015 ng/mL (0.000-0.040)
--- NOTE | 2018-10-03 18:26 | NUR ---
IV AND TELE REMOVED. PT D/C VIA WHEELCHAIR WITH [facility] TO [facility] AT 1805.
== END 2018-10-03 18:00 ==
LOC: ER 19:51 → MEDS 19:52
PROVIDERS: Emergency Medicine; ADMIT Internal Medicine
DX: D64.9 Anemia, unspecified (principal); R07.2 Precordial pain; E86.0 Dehydration; G89.29 Other chronic pain; I25.10 Atherosclerotic heart disease of native coronary artery without angina pectoris; I11.0 Hypertensive heart disease with heart failure; I50.22 Chronic systolic (congestive) heart failure; E11.40 Type 2 diabetes mellitus with diabetic neuropathy, unspecified; J44.9 Chronic obstructive pulmonary disease, unspecified; E78.5 Hyperlipidemia, unspecified; G47.30 Sleep apnea, unspecified; F41.9 Anxiety disorder, unspecified; E66.01 Morbid (severe) obesity due to excess calories; Z79.899 Other long term (current) drug therapy; Z79.82 Long term (current) use of aspirin; Z79.51 Long term (current) use of inhaled steroids; Z79.01 Long term (current) use of anticoagulants; Z88.8 Allergy status to other drugs, medicaments and biological substances; Z88.6 Allergy status to analgesic agent; Z68.41 Body mass index [BMI] 40.0-44.9, adult; Z99.81 Dependence on supplemental oxygen
CPT/HCPCS: 36415; 36430; 71046; 80053; 81003; 82140; 82248; 82330; 82550; 82947; 83605; 83735; 83880; 84100; 84145; 84484; 85018; 85025; 85027; 86850; 86900; 86901; 86923; 87486; 87581; 87633; 87798; 93005; 93010; 94660; 94664; 94667; 94760; 94762; 96372; 98960; 99285-25; G0378; J1650; J7030; P9016

== ENCOUNTER 2018-10-26 22:51 | Emergency (ER) | payer OTHER ==
[~2018-10-26] VITALS: Ht 177.8 cm; Wt 137.4 kg
[~2018-10-26 22:51] MED LIST changes: +**INCOMPLETE MED REC; +FAMO40 PO; +Humulin R500 UNIT/1 SC; +LIDO5TO TOP; +LIDOCAINE PAIN1 EACH TOP; +PREVNAR 13 SYR0.5 ML IM; +Ropinirole HCl0.5 MG PO
[2018-10-26 23:52] LABS: BASOPHILS ABSOLUTE AUTO 0.04 K/mm3 (0.00-0.23); BASOPHILS PERCENT AUTO 0 % (0-2); EOSINOPHILS ABSOLUTE AUTO 0.42 K/mm3 (0.00-0.68); EOSINOPHILS PERCENT AUTO 4 % (0-6); Hemoglobin 8.6 g/dL (13.5-17.5); IMMATURE GRAN ABSOLUTE AUTO 0.22 K/mm3 (0.00-0.10); IMMATURE GRAN PERCENT AUTO 2 % (0-1); LYMPHOCYTES ABSOLUTE AUTO 1.38 K/mm3 (0.84-5.20); LYMPHOCYTES PERCENT AUTO 14 % (21-46); MONOCYTES ABSOLUTE AUTO 0.72 K/mm3 (0.16-1.47); MONOCYTES PERCENT AUTO 7 % (4-13); Mean Corpuscular HGB 28.6 pg (26.0-34.0); Mean Corpuscular HGB Conc 29.7 g/dL (31.5-36.5); Mean Platelet Volume 8.7 fL (9.1-12.4); NEUTROPHILS ABSOLUTE AUTO 7.03 K/mm3 (1.96-9.15); NEUTROPHILS PERCENT AUTO 72 % (41-73); Platelet Count 110 K/mm3 (150-400); RDW Coefficient Variation 19.1 % (11.7-14.2); RDW Standard Deviation 67.8 fL (35.1-46.3); Red Blood Cell Count 3.01 M/mm3 (4.30-5.90); White Blood Cell Count 9.81 K/mm3 (4.00-11.30)
[2018-10-26 23:53] LABS: Mean Corpuscular Volume 96 fL (80-100)
[2018-10-27 00:09] LABS: Alanine Aminotransfer (ALT/SGP 40 U/L (12-78); Albumin, Blood 3.2 g/dL (3.4-5.0); Albumin/Globulin Ratio 0.8 (0.8-1.8); Alk Phos 125 U/L (50-136); Anion Gap 7 mmol/L (6-16); Aspartate Aminotrans (AST/SGOT 27 U/L (12-37); Bilirubin, Total 0.5 mg/dL (0.1-1.0); Blood Urea Nitrogen 48 mg/dL (8-24); Bun/Creatinine Ratio 37.2 (12.0-20.0); CO2, Blood 34 mmol/L (21-32); Calcium, Blood 8.7 mg/dL (8.5-10.1); Chloride, Blood 101 mmol/L (98-108); Creatinine, Blood 1.29 mg/dL (0.60-1.20); Globulin, Blood 3.8 g/dL (2.2-4.0); Glomerular Filtration Rate >60 (60-); Glucose, Blood 196 mg/dL (70-99); Sodium, Blood 142 mmol/L (136-145); Troponin I <0.015 ng/mL (0.000-0.040)
== END 2018-10-27 03:24 | disposition home or self-care (01) ==
LOC: ER 22:51
PROVIDERS: Emergency Medicine
DX: I11.0 Hypertensive heart disease with heart failure (principal); I50.1 Left ventricular failure, unspecified; Z88.8 Allergy status to other drugs, medicaments and biological substances; Z88.6 Allergy status to analgesic agent; Z79.899 Other long term (current) drug therapy; Z79.82 Long term (current) use of aspirin; Z79.4 Long term (current) use of insulin; Z79.891 Long term (current) use of opiate analgesic; E11.9 Type 2 diabetes mellitus without complications; J44.9 Chronic obstructive pulmonary disease, unspecified; F32.9 Major depressive disorder, single episode, unspecified
CPT/HCPCS: 36415; 71046; 80053; 83880; 84484; 85025; 93005; 93010; 96374; 99284-25

== ENCOUNTER 2018-11-09 19:02 | Inpatient (IN) | payer OTHER ==
[~2018-11-09] VITALS: Ht 175.3 cm; Wt 130.0 kg
[2018-11-09 19:29] LABS: BASOPHILS ABSOLUTE AUTO 0.06 K/mm3 (0.00-0.23); BASOPHILS PERCENT AUTO 1 % (0-2); EOSINOPHILS ABSOLUTE AUTO 0.47 K/mm3 (0.00-0.68); EOSINOPHILS PERCENT AUTO 5 % (0-6); Hematocrit 36.2 % (37.0-53.0); Hemoglobin 11.2 g/dL (13.5-17.5); IMMATURE GRAN PERCENT AUTO 2 % (0-1); LYMPHOCYTES ABSOLUTE AUTO 1.44 K/mm3 (0.84-5.20); LYMPHOCYTES PERCENT AUTO 14 % (21-46); MONOCYTES ABSOLUTE AUTO 0.94 K/mm3 (0.16-1.47); MONOCYTES PERCENT AUTO 9 % (4-13); Mean Corpuscular HGB 28.7 pg (26.0-34.0); Mean Corpuscular HGB Conc 30.9 g/dL (31.5-36.5); Mean Corpuscular Volume 93 fL (80-100); Mean Platelet Volume 9.5 fL (9.1-12.4); NEUTROPHILS ABSOLUTE AUTO 7.26 K/mm3 (1.96-9.15); NEUTROPHILS PERCENT AUTO 70 % (41-73); Platelet Count 152 K/mm3 (150-400); RDW Standard Deviation 57.1 fL (35.1-46.3); White Blood Cell Count 10.37 K/mm3 (4.00-11.30)
[2018-11-09 19:56] LABS: Alanine Aminotransfer (ALT/SGP 61 U/L (12-78); Albumin, Blood 3.7 g/dL (3.4-5.0); Albumin/Globulin Ratio 0.8 (0.8-1.8); Alk Phos 144 U/L (50-136); Anion Gap 10 mmol/L (6-16); Aspartate Aminotrans (AST/SGOT 61 U/L (12-37); Bilirubin, Total 0.4 mg/dL (0.1-1.0); Blood Urea Nitrogen 146 mg/dL (8-24); Bun/Creatinine Ratio 75.6 (12.0-20.0); CO2, Blood 35 mmol/L (21-32); Chloride, Blood 90 mmol/L (98-108); Creatinine, Blood 1.93 mg/dL (0.60-1.20); Globulin, Blood 4.6 g/dL (2.2-4.0); Glomerular Filtration Rate 38 (60-); Glucose, Blood 222 mg/dL (70-99); Potassium, Blood 3.3 mmol/L (3.5-5.5); Sodium, Blood 135 mmol/L (136-145); Total Protein, Blood 8.3 g/dL (6.4-8.2); Troponin I <0.015 ng/mL (0.000-0.040)
[2018-11-09] MEDS ORDERED: ALBU90OI61 INH (20:58)
[2018-11-09] MEDS ORDERED: AMLO10 PO (20:59)
[2018-11-09] MEDS ORDERED: INSULANPEN SC (21:02)
[2018-11-09] MEDS ORDERED: Robaxin750 MG PO (21:04)
[2018-11-09] MEDS ORDERED: MELA3 PO (21:04)
[2018-11-09] MEDS ORDERED: METO5 PO (21:05)
[2018-11-09 21:45] LABS: Albumin, Blood 3.7 g/dL (3.4-5.0); Anion Gap 17 mmol/L (6-16); Blood Urea Nitrogen 147 mg/dL (8-24); Bun/Creatinine Ratio 74.6 (12.0-20.0); CO2, Blood 32 mmol/L (21-32); Calcium, Blood 9.1 mg/dL (8.5-10.1); Chloride, Blood 89 mmol/L (98-108); Creatinine, Blood 1.97 mg/dL (0.60-1.20); Glomerular Filtration Rate 37 (60-); Glucose, Blood 223 mg/dL (70-99); Phosphorus, Blood 4.5 mg/dL (2.5-4.9); Potassium, Blood 3.3 mmol/L (3.5-5.5); Sodium, Blood 138 mmol/L (136-145)
[2018-11-09 21:47] LABS: International Normalized Ratio 0.98; Prothrombin Time Results 10.4 Sec (9.7-11.5)
[2018-11-10 03:45] LABS: BASOPHILS ABSOLUTE AUTO 0.04 K/mm3 (0.00-0.23); BASOPHILS PERCENT AUTO 0 % (0-2); EOSINOPHILS PERCENT AUTO 5 % (0-6); Hematocrit 33.2 % (37.0-53.0); Hemoglobin 10.2 g/dL (13.5-17.5); IMMATURE GRAN ABSOLUTE AUTO 0.19 K/mm3 (0.00-0.10); IMMATURE GRAN PERCENT AUTO 2 % (0-1); LYMPHOCYTES ABSOLUTE AUTO 1.78 K/mm3 (0.84-5.20); LYMPHOCYTES PERCENT AUTO 19 % (21-46); MONOCYTES ABSOLUTE AUTO 1.16 K/mm3 (0.16-1.47); MONOCYTES PERCENT AUTO 12 % (4-13); Mean Corpuscular HGB 28.1 pg (26.0-34.0); Mean Corpuscular HGB Conc 30.7 g/dL (31.5-36.5); Mean Corpuscular Volume 92 fL (80-100); Mean Platelet Volume 9.3 fL (9.1-12.4); NEUTROPHILS ABSOLUTE AUTO 5.79 K/mm3 (1.96-9.15); NEUTROPHILS PERCENT AUTO 61 % (41-73); Platelet Count 129 K/mm3 (150-400); RDW Standard Deviation 57.3 fL (35.1-46.3); Red Blood Cell Count 3.63 M/mm3 (4.30-5.90); White Blood Cell Count 9.46 K/mm3 (4.00-11.30)
[2018-11-10 04:05] LABS: Alanine Aminotransfer (ALT/SGP 57 U/L (12-78); Albumin, Blood 3.6 g/dL (3.4-5.0); Albumin/Globulin Ratio 0.8 (0.8-1.8); Alk Phos 127 U/L (50-136); Anion Gap 6 mmol/L (6-16); Aspartate Aminotrans (AST/SGOT 52 U/L (12-37); Bilirubin, Total 0.4 mg/dL (0.1-1.0); Blood Urea Nitrogen 148 mg/dL (8-24); Bun/Creatinine Ratio 77.5 (12.0-20.0); CO2, Blood 40 mmol/L (21-32); Calcium, Blood 8.8 mg/dL (8.5-10.1); Chloride, Blood 91 mmol/L (98-108); Creatinine, Blood 1.91 mg/dL (0.60-1.20); Globulin, Blood 4.3 g/dL (2.2-4.0); Glomerular Filtration Rate 38 (60-); Glucose, Blood 112 mg/dL (70-99); Magnesium, Blood 3.3 mg/dL (1.6-2.4); Phosphorus, Blood 4.1 mg/dL (2.5-4.9); Potassium, Blood 3.1 mmol/L (3.5-5.5); Sodium, Blood 137 mmol/L (136-145); Total Protein, Blood 7.9 g/dL (6.4-8.2)
[2018-11-10] MEDS ORDERED: Humalog100 UNIT/1 (06:57)
--- NOTE | 2018-11-10 07:29 | NUR ---
SHIFT SUMMARY PATIENT ADMITTED EARLIER THIS SHIFT. PATIENT HAD COMPLAINTS OF 7-8/10 CHEST PAIN WHICH PATIENT STATED "IS MORE OF A PRESSURE." PATIENT MEDICATED FOR PAIN PER EMAR. PATIENT APPEARED TO BE ABLE TO SLEEP WELL FOR SEVERAL HOURS AFTER PAIN MEDICATION WAS GIVEN. PATIENT HAS REMAINED NPO THROUGHOUT THE NIGHT. VITAL SIGNS CHARTED. IV FLUIDS RUNNING PER ORDERS. REPORT GIVEN TO ONCOMING RN.
--- NOTE | 2018-11-10 10:21 | NUR ---
Dr. Mitchell here; states that he spoke with Dr. Larose and the cardiology consult will be cancelled. Dr. Larose states that the pt will continue to be NPO for a Lexiscan this morning.
--- NOTE | 2018-11-10 13:36 | NUR ---
Complained of chest pain, 03/29 which he described as pressure with sharp pain, from the sternal area radiating to the left pectoral area. Vital signs stable. Oxygen turned up to 2 l/min, but pt states no relief from the pain. He is lying in bed, HOB elevated about 25 degrees, with his eyes closed, respirations even and unlabored. No diaphoresis, no cyanosis, no tachypnea, no accessory muscle use. Scheduled pain medications were given. States that this pain often occurs just after he eats. States bowel movement just a little while ago which he described as normal in color and consistency.
--- NOTE | 2018-11-10 13:43 | NUR ---
Pt states that he has a cpap at home, but that he does not use it because he doesn't like it. concurrs with this.
--- NOTE | 2018-11-10 16:38 | NUR ---
END OF SHIFT SUMMARY ASSUMED CARE OF PT @0700. PTS LUNG SOUNDS HAVE GONE FROM HAVING CRACKLES IN THE UPPER LOBES AND COARSE T/O TO JUST BEING COARSE T/O. VS HAVE REMAINED STABLE ALL SHIFT. PT HAS MARIANA UP TO CHAIR WITH LITTLE ASSISTANCE. PT HAS BEEN TITRATED FROM 6L OXYMIZER TO 4L OXYMIZER, O2 SATS HAVE NOT DROPPED BELOW 90%, EVEN WHEN AMBULATING. PT HAS HAD CPT AND TOLERATED IT WELL. THIS NURSE TO ELISA BOCANEGRA BEFORE SHIFT CHANGE. PT HAS NOT REQUIRED BIPAP WHOLE SHIFT. WILL CONTINUE TO MONITOR PT UNTIL SHIFT CHANGE.
--- NOTE | 2018-11-10 16:45 | NUR ---
END OF SHIFT SUMMARY ASSUMED CARE OF PT AT 0700. PT'S MAIN COMPLAINT CP THROUGHOUT SHIFT. THIS NURSE AND APRIL RN HAVE ATTEMPTED TOP GET PAIN UNDER CONTROL ALL SHIFT. HAVE FOUND SOME SUCCESS WITH IV MORPHINE. PT HAS NOT BEEN DIAPHORETIC, VS HAVE BEEN STABLE ALL SHIFT, PT BREATHING EASILY. PT TO HAVE STRESS TEST, WILL BE NPO @0800. STAFF TO HOLD NITRO PATCH AND OTHER NITRATES ALONG WITH CAFFEINE FOR TESTING. PT'S HR HAS REMAINED NSR T/O SHIFT. PT HAS BEEN RECEIVING NS THROUGH IV ALONG WITH POTASSIUM TO REVERSE K DEFICIT. PT GIVEN IV MORPHINE 2MG AND HAS SLEPT SINCE. PT AROUSABLE. PT STATES NOT BEING ABLE TO GET MUCH SLEEP LAST NIGHT AND HAS APPRECIATED BEING ABLE TO CATCH UP. SPOUSE IN ROOM T/O SHIFT.
[2018-11-11 03:27] LABS: BASOPHILS ABSOLUTE AUTO 0.05 K/mm3 (0.00-0.23); BASOPHILS PERCENT AUTO 1 % (0-2); EOSINOPHILS ABSOLUTE AUTO 0.45 K/mm3 (0.00-0.68); EOSINOPHILS PERCENT AUTO 5 % (0-6); Hematocrit 34.9 % (37.0-53.0); Hemoglobin 10.4 g/dL (13.5-17.5); IMMATURE GRAN ABSOLUTE AUTO 0.16 K/mm3 (0.00-0.10); IMMATURE GRAN PERCENT AUTO 2 % (0-1); LYMPHOCYTES ABSOLUTE AUTO 1.34 K/mm3 (0.84-5.20); LYMPHOCYTES PERCENT AUTO 16 % (21-46); MONOCYTES ABSOLUTE AUTO 0.83 K/mm3 (0.16-1.47); MONOCYTES PERCENT AUTO 10 % (4-13); Mean Corpuscular HGB 28.1 pg (26.0-34.0); Mean Corpuscular HGB Conc 29.8 g/dL (31.5-36.5); Mean Corpuscular Volume 94 fL (80-100); NEUTROPHILS ABSOLUTE AUTO 5.43 K/mm3 (1.96-9.15); NEUTROPHILS PERCENT AUTO 66 % (41-73); Platelet Count 117 K/mm3 (150-400); RDW Coefficient Variation 17.3 % (11.7-14.2); RDW Standard Deviation 59.9 fL (35.1-46.3); White Blood Cell Count 8.26 K/mm3 (4.00-11.30)
[2018-11-11 03:47] LABS: Alanine Aminotransfer (ALT/SGP 60 U/L (12-78); Albumin, Blood 3.7 g/dL (3.4-5.0); Albumin/Globulin Ratio 0.9 (0.8-1.8); Alk Phos 130 U/L (50-136); Anion Gap 9 mmol/L (6-16); Aspartate Aminotrans (AST/SGOT 58 U/L (12-37); Bilirubin, Total 0.6 mg/dL (0.1-1.0); Blood Urea Nitrogen 138 mg/dL (8-24); Bun/Creatinine Ratio 89.6 (12.0-20.0); CO2, Blood 32 mmol/L (21-32); Calcium, Blood 9.5 mg/dL (8.5-10.1); Chloride, Blood 95 mmol/L (98-108); Creatinine, Blood 1.54 mg/dL (0.60-1.20); Globulin, Blood 4.2 g/dL (2.2-4.0); Glomerular Filtration Rate 49 (60-); Glucose, Blood 322 mg/dL (70-99); Magnesium, Blood 3.7 mg/dL (1.6-2.4); Phosphorus, Blood 4.9 mg/dL (2.5-4.9); Potassium, Blood 4.6 mmol/L (3.5-5.5); Sodium, Blood 136 mmol/L (136-145); Total Protein, Blood 7.9 g/dL (6.4-8.2)
--- NOTE | 2018-11-11 04:45 | NUR ---
UPDATE: DR BEVERLY NOTIFIED THAT PATIENT'S BLOOD SUGAR WAS [address] BEVERLY ALSO NOTIFIED THAT PATIENT'S MAG WAS 3.7. NO NEW ORDERS WERE GIVEN AT THIS TIME.
--- NOTE | 2018-11-11 07:29 | NUR ---
SHIFT SUMMARY PATIENT PLEASENT AND COOPERATIVE THROUGHOUT THE NIGHT. PATIENT MOVED FROM THE RECLINER CHAIR TO THE BED NEEDED FOR COMFORT. PATIENT HAD SEVERAL NOSE BLEEDS LAST NIGHT BUT STATES HE GET'S THEM, "ALL THE TIME." PATIENT'S CHEST PAIN WAS 8-9/10 LAST NIGHT. PATIENT MEDICATED FOR PAIN PER EMAR. PATIENT APPEARED TO SLEEP WELL THROUGHOUT MOST OF THE NIGHT. VITAL SIGNS CHARTED. REPORT GIVEN TO ONCOMING RN.
--- NOTE | 2018-11-11 11:04 | NUR ---
UPDATE PT STILL CONTINUES TO C/O CP 03/29. DR CHU NOTIFIED OF PAIN CHARACTERISTICS (WORSENS AFTER EATING, SHARP CONSTANT MID TO LEFT CHEST, DOESN'T WORSEN WITH MOVEMENT, EXERTION, OR BREATHING DEEP). DR CHU WANING TO WAIT AND SEE WHAT LEXISCAN SHOWS THIS SHIFT TO DETERMINE NEXT PLAN OF ACTION.
--- NOTE | 2018-11-11 13:52 | NUR ---
The pt c/o chest pressure with sharp pain 9/10 while sitting up in chair, after eating and drinking caffienated beverage. Vital signs taken, noted stable. No diaphoresis, no dyspnea, no cyanosis, and no changes noted on telemetry. His is at the bedside. Nitroglycerin paste was given ( held this morning per procedure), as well as zofran for nausea. After the pt's nausea abated, Imdur (which has also been held per procedure) was given. The pt reported that his pain was decreased from 9/10 to 6-8/10, and he was looking much more comfortable. Call placed to Dr Oconnell and new order also received for carafate. At this time, the pt is taken to imaging for final pictures to be taken for stress test. The pt was able to walk into the bathroom to void before walking to wheelchair to be taken down for the imaging.
--- NOTE | 2018-11-11 17:29 | NUR ---
PROVIDER ALERTED PT CBG 469. DR CHU CALLED REGARDING CBG. THIS NURSE ASKED IF SHE WANTED TO GIE MORE THAN THE SLIDING SCALE ORDER OF 18UNITS REGULAR INSULIN. PROVIDER STTED TO JUST USE THE 18 UNITS.
--- NOTE | 2018-11-11 17:38 | NUR ---
END OF SHIFT SUMMARY PT CONTINUES TO C/O OF PAIN, SX'S RELAYED TO DR CHU. CARAFET SUSPENSION ORDERED, SEE PREV NOTE. SALTYDENISE COMPLETED THIS SHIFT. AWAITING RESULTS. PROVIDER AWAITING RESULTS TO SEE IF ROOT CAUSE OF CHEST PAIN IS CARDIAC OR NOT. PT HAS BEEN MEDICATED PER EMAR FOR CHEST PAIN. PAIN HAS STAYED AROUND 6-8/10 DESPITE MEDICATION. PT HAS BEEN UP TO CHAIR AND BACK TO BED MULTIPLE TIMES THIS SHIFT. PT VS HAVE REMAINED STABLE THIS SHIFT. PT HAS HAD A FEW NOSEBLEEDS BUT STATES HAS BEEN LESS THIS SHIFT THAN YESTERDAY. NO ACUTE CHANGES WITH PT. WILL CONTINUE TO MONITOR PT UNTIL SHIFT CHANGE.
--- NOTE | 2018-11-11 20:04 | NUR ---
1945 ASSUMED CARE, ASSESSMENT DOMNE SEE FULL ASSESSMENT. CHEST PAIN CONTINUES BUT IMPROVED FROM EARLIER, WILL CONTINUE TO MONITOR. ROOM TIDIED UP TABLE AT BEDSIDE, CALL LIGHT IN REACH AND DISCUSSED PLAN OF CARE FOR NOC SHIFT.
[2018-11-12 04:01] LABS: BASOPHILS ABSOLUTE AUTO 0.02 K/mm3 (0.00-0.23); BASOPHILS PERCENT AUTO 0 % (0-2); EOSINOPHILS ABSOLUTE AUTO 0.38 K/mm3 (0.00-0.68); EOSINOPHILS PERCENT AUTO 5 % (0-6); Hematocrit 30.4 % (37.0-53.0); Hemoglobin 9.2 g/dL (13.5-17.5); IMMATURE GRAN ABSOLUTE AUTO 0.14 K/mm3 (0.00-0.10); IMMATURE GRAN PERCENT AUTO 2 % (0-1); LYMPHOCYTES ABSOLUTE AUTO 1.23 K/mm3 (0.84-5.20); LYMPHOCYTES PERCENT AUTO 15 % (21-46); MONOCYTES ABSOLUTE AUTO 0.77 K/mm3 (0.16-1.47); MONOCYTES PERCENT AUTO 10 % (4-13); Mean Corpuscular HGB 28.2 pg (26.0-34.0); Mean Corpuscular HGB Conc 30.3 g/dL (31.5-36.5); Mean Corpuscular Volume 93 fL (80-100); Mean Platelet Volume 9.9 fL (9.1-12.4); NEUTROPHILS ABSOLUTE AUTO 5.56 K/mm3 (1.96-9.15); NEUTROPHILS PERCENT AUTO 69 % (41-73); Platelet Count 108 K/mm3 (150-400); RDW Coefficient Variation 17.1 % (11.7-14.2); RDW Standard Deviation 58.4 fL (35.1-46.3); Red Blood Cell Count 3.26 M/mm3 (4.30-5.90)
[2018-11-12 04:20] LABS: Alanine Aminotransfer (ALT/SGP 51 U/L (12-78); Albumin, Blood 3.5 g/dL (3.4-5.0); Albumin/Globulin Ratio 0.9 (0.8-1.8); Alk Phos 118 U/L (50-136); Anion Gap 6 mmol/L (6-16); Aspartate Aminotrans (AST/SGOT 34 U/L (12-37); Bilirubin, Total 0.4 mg/dL (0.1-1.0); Blood Urea Nitrogen 105 mg/dL (8-24); Bun/Creatinine Ratio 71.9 (12.0-20.0); CO2, Blood 36 mmol/L (21-32); Calcium, Blood 9.5 mg/dL (8.5-10.1); Chloride, Blood 93 mmol/L (98-108); Creatinine, Blood 1.46 mg/dL (0.60-1.20); Globulin, Blood 3.9 g/dL (2.2-4.0); Glomerular Filtration Rate 52 (60-); Glucose, Blood 520 mg/dL (70-99); Magnesium, Blood 3.6 mg/dL (1.6-2.4); Phosphorus, Blood 4.3 mg/dL (2.5-4.9); Potassium, Blood 4.6 mmol/L (3.5-5.5); Sodium, Blood 135 mmol/L (136-145); Total Protein, Blood 7.4 g/dL (6.4-8.2)
--- NOTE | 2018-11-12 05:20 | NUR ---
RESTED QUIETLY T\O NIGHT, SLEEP IN CHAIR MOST OF SHIFT, NO CHANGES, ROOM TIDIED, CALL LIGHT IN REACH WILL CONTINUE TO MONITOR TILL DAYSHIFT HANDOFF
--- NOTE | 2018-11-12 16:47 | NUR ---
Notified by PCT of critically high blood sugar, greater than 500; Lab is here to draw the blood. The pt has been having less pain today, and is eating more than he did yesterday. The states that the pt is on much higher doses of insulin at home: states that he takes 300 units TID of humulin insulin.
[2018-11-12] MEDS ORDERED: IRON INFUSION (17:13)
--- NOTE | 2018-11-12 17:19 | NUR ---
END OF SHIFT SUMMARY PT HAS BEEN RESTING ON AND OFF THIS SHIFT. PT'S PAIN HAS BEEN PROPHYLACTICALLY TREATED BEFORE MEALS WITH CARAFET AND GI COCKTAIL. PT'S PAIN HAS RELIEVED FROM CONSTANT 7 OR 8/10 TO 5/10 [address] THESE MEDS GIVEN. DR RENO CONSULTED BY DR CHU. SHADIA SUGGESTS, DUE TO LEXISCAN RESULT, THAT PT COULD HAVE ANGIO HERE OR SHOULD HAVE PT'S INTERVENTIONALIST IN [place] DO ONE. PT ELECTS TO DO IT IN [place]. DR RENO TO SPEAK WITH KIMBERLEY ABOUT FUTURE ROUTE OF CARE. KIMBERLEY ORDERED UPPER GI FOR TOMORROW FOR SUSPECTED GI REASONS BEHIND PAIN. PT DROWSY T/O SHIFT, MORPHINE HAS BEEN HELD DUE TO NON CARDIAC RELATED PAIN, PT'S PAIN NOT BEING AFFECTED BY MED, AND PATIENTAS OVERALL DROWSINESS/WITHDRAWN. VS HAVE BEEN STABLE. PT WILL BE NPO AT MIDNIGHT FOR TEST TOMORROW MORNING. WILL CONTINUE TOMONITOR PT UNTIL SHIFT CHNAGE.
[2018-11-12 17:21] LABS: Glucose, Blood 535 mg/dL (70-99)
[2018-11-12] MEDS ORDERED: POTCHL10ER PO (17:43)
--- NOTE | 2018-11-12 19:21 | NUR ---
Luis Alfredo was alone in room. He tells me hen is glad "they are doing all these tests this time", as he is hoping to find out why he has been having chest pain. He tells me he is sleepy, but allowed me to pray for both himself and his . I will remain available to pt and spouse.
[2018-11-12 21:02] LABS: Glucose, Blood 555 mg/dL (70-99)
--- NOTE | 2018-11-12 22:45 | NUR ---
HOME INSULIN; PATIENT'S ZI BROUGHT IN PATIENT'S HOME INSULIN; SENT TO PHARMACY; ORDER'S UPDATED IN EMAR (400 UNITS TIDM) DID NOT MATCHING ORDER ON MEDICATION LABEL; CALLED PHARMACIST MARTY; DR. COLIN HAD PUT IN ORDER FOR 400 UNITS TIDM; PATIENT'S REPORTS THAT HE NORMALLY TAKES 400 UNITS WITH MEALS BUT DOESNT TAKE LONG ACTING INSULIN. LONG ACTING INSULIN NOTED ON MED REC UPON PATIENT ARRIVAL; PATIENT REPORTS MEDS FROM PREVIOUS HOSPITAL VISIT (NOT [facility]); PATIENT REPORTS HE WAS D/C'D FROM ANOTHER HOSPITAL WITH ORDERS FOR LONG ACTING INSULIN BUT CALLED HIS PCP THE DAY HE WAS DISCHARGED AND WAS INSTRUCTED BY HIS PCP NOT TO TAKE LONG ACTING INSULIN. CLARIFICATION WITH PHARMACIST; ORDER AND THIS RN COMPLETED.
--- NOTE | 2018-11-13 00:05 | NUR ---
CBG OVER 500 DURING AC/HS CBG CHECK SHORTLY AFTER 1999; LAB REDRAW CAME BACK AT 555; CALLED TRENT TOBAR; ORDERS RECIEVED; TWO HOUR RECHECK OF CBG WAS 386.
--- NOTE | 2018-11-13 01:06 | NUR ---
ASSUMED CARE OF PATIENT AT APPROXIMATELY 1915 FROM APRIL Ramsey RN AND GURPREET Mtz RN. PATIENT DROWSY; EASILY FALLS ASLEEP MULTIPLE TIMES DURING BEDSIDE REPORT; REPORTED BY DAYSHIFT RN THAT IV MORPHINE DISCONTINUED TODAY. PATIENT IN RECLINER; AT BEDSIDE; BROUGHT IN HOME INSULIN; SENT TO PHARMACY. PATIENT COMPLAINS OF CHEST PRESSURE MID CHEST; REPORTS PAIN INCREASES AFTER EATING; PATIENT REFUSED NITRO PASTE; STATED "DOESN'T HELP" BUT LATER REQUESTED WHEN PAIN MOVED TO A 8 FROM A 7; SAME PAIN REPORTED; PATIENT HAD MOVED FROM RECLINER TO LAYING ON LEFT SIDE IN BED WITHIN 30 MINUTES OF PAIN INCREASING; PATIENT HAS SINCE MOVED TO RECLINER AGAIN. PATIENT REPORTED PAIN WAS ALMOST GONE AND HE WAS COMFORTABLE FOR A FEW HOURS WHILE HE WAS IN RECLINER. PATIENT ABLE TO MOVE FROM RECLINER TO BED INDEPENDENTLY; SOME WEAKNESS NOTED. PATIENT DENIES NUMBNESS, TINGLING, DIZZINESS OR NAUSEA. CBG OVER 500; SEE PREVIOUS NURSING NOTE. PIV S/L. PATIENT NPO FOR EGD THIS AM. SCDS IN PLACE WHEN IN BED. PATIENT CURRENTLY SLEEPING IN RECLINER; CALL LIGHT IN REACH; WILL CONTINUE TO MONITOR AND ASSESS UNTIL END OF SHIFT.
[2018-11-13 03:57] LABS: Hematocrit 30.8 % (37.0-53.0); Hemoglobin 9.5 g/dL (13.5-17.5)
[2018-11-13 04:17] LABS: Albumin, Blood 3.7 g/dL (3.4-5.0); Anion Gap 6 mmol/L (6-16); Blood Urea Nitrogen 97 mg/dL (8-24); Bun/Creatinine Ratio 69.8 (12.0-20.0); CO2, Blood 36 mmol/L (21-32); Calcium, Blood 9.8 mg/dL (8.5-10.1); Chloride, Blood 93 mmol/L (98-108); Creatinine, Blood 1.39 mg/dL (0.60-1.20); Glomerular Filtration Rate 56 (60-); Glucose, Blood 333 mg/dL (70-99); Magnesium, Blood 2.9 mg/dL (1.6-2.4); Phosphorus, Blood 3.3 mg/dL (2.5-4.9); Potassium, Blood 4.2 mmol/L (3.5-5.5); Sodium, Blood 135 mmol/L (136-145)
[2018-11-13 13:54] LABS: Stool Occult Blood Guaiac 1 Pos (Neg)
--- NOTE | 2018-11-13 14:28 | NUR ---
BEGINNING OF SHIFT Assumed care of pt at 0700. Report received from Isa TRONCOSO. Pt on 2 LPM NC, which he states is his home O2 dose. Pt on continuous oximetry. SR per telemetry. Pt NPO until UGI completed. Pt medical floor status with telemetry. Report given to medical floor nurse, Sophie. Pt departed from PCU at 1424, via wheelchair, accompanied by Renata PEREZ. Chart, belonings, and medications transferred with patient.
--- NOTE | 2018-11-13 14:30 | NUR ---
PT. ARRIVED TO ROOM FROM U-6 VIA WC. RECEIVED REPORT FROM GRETEL TRONCOSO.
--- NOTE | 2018-11-13 18:12 | NUR ---
PT. LYING DOWN AFTER EATING DINNER, NO NOTEABLE CHANGES SINCE COMING TO FLOOR. PT. APPEARS TO BE WITHDRAWN. PT. BLOOD SUGAR BEFORE DINNER WAS 69. WAITED FOR TRAY TO BE IN ROOM BEFORE GIVING INSULIN. ORANGE JUICE GIVEN AT TIME OF BLOOD SUGAR.
--- NOTE | 2018-11-14 05:05 | NUR ---
VSS, AFEBRILE, A/O. DURING THE 2100 MED PASS, PT'S WAS AT THE BEDSIDE. SHE REPORTED THAT HE "USUALLY EATS A LOT MORE THAN HE GETS HERE". SHE WAS CONCERNED THAT HIS BG WAS SO LOW WHEN IT IS USUALLY >200. PT'S CBG AT THAT TIME WAS 64, AND HE REFUSED ALL INSULIN FOR THAT SUPERINTENDENT GAS DISTRIBUTION TIME. PT WAS GIVEN ORANGE JUICE AND CHEESE TO ELEVATE HIS BG. THEN, AROUND 2330, PT CALLED TO REPORT THE S/S OF HYPOGLYCEMIA. HIS CBG WAS 80, AND HE WAS AGAIN GIVEN ORANGE JUICE AND PROTEIN. AROUND 0100, HE CALLED AGAIN TO REPORT S/S OF HYPOGLYCEMIA, AND HIS CBG WAS 88. HE WAS GIVEN MORE ORANGE JUICE AND PROTEIN. HE CALLED A THIRD TIME AT 0200 TO REPORT S/S OF HYPOGLYCEMIA, HIS CBG WAS 81, HE WAS GIVEN MORE CARBS AND PROTEIN. THE CBG WAS RECHECKED AT 0320 AND IT WAS 137. PT MIGHT BENEFIT FROM A CHANGE TO HIS INSULIN ROUTINE WHILE IN THE HOSPITAL.
[2018-11-14 05:21] LABS: BASOPHILS ABSOLUTE AUTO 0.03 K/mm3 (0.00-0.23); BASOPHILS PERCENT AUTO 0 % (0-2); EOSINOPHILS ABSOLUTE AUTO 0.45 K/mm3 (0.00-0.68); EOSINOPHILS PERCENT AUTO 5 % (0-6); Hematocrit 30.1 % (37.0-53.0); Hemoglobin 9.3 g/dL (13.5-17.5); IMMATURE GRAN ABSOLUTE AUTO 0.17 K/mm3 (0.00-0.10); IMMATURE GRAN PERCENT AUTO 2 % (0-1); LYMPHOCYTES ABSOLUTE AUTO 1.51 K/mm3 (0.84-5.20); LYMPHOCYTES PERCENT AUTO 17 % (21-46); MONOCYTES ABSOLUTE AUTO 0.74 K/mm3 (0.16-1.47); MONOCYTES PERCENT AUTO 8 % (4-13); Mean Corpuscular HGB 28.4 pg (26.0-34.0); Mean Corpuscular HGB Conc 30.9 g/dL (31.5-36.5); Mean Corpuscular Volume 92 fL (80-100); Mean Platelet Volume 10.1 fL (9.1-12.4); NEUTROPHILS ABSOLUTE AUTO 6.14 K/mm3 (1.96-9.15); NEUTROPHILS PERCENT AUTO 68 % (41-73); Platelet Count 101 K/mm3 (150-400); RDW Standard Deviation 54.8 fL (35.1-46.3); Red Blood Cell Count 3.28 M/mm3 (4.30-5.90); White Blood Cell Count 9.04 K/mm3 (4.00-11.30)
[2018-11-14 05:42] LABS: Albumin, Blood 3.5 g/dL (3.4-5.0); Anion Gap 8 mmol/L (6-16); Blood Urea Nitrogen 104 mg/dL (8-24); Bun/Creatinine Ratio 61.5 (12.0-20.0); CO2, Blood 35 mmol/L (21-32); Calcium, Blood 9.2 mg/dL (8.5-10.1); Chloride, Blood 95 mmol/L (98-108); Creatinine, Blood 1.69 mg/dL (0.60-1.20); Glomerular Filtration Rate 44 (60-); Glucose, Blood 151 mg/dL (70-99); Magnesium, Blood 2.7 mg/dL (1.6-2.4); Phosphorus, Blood 3.5 mg/dL (2.5-4.9); Potassium, Blood 4.2 mmol/L (3.5-5.5); Sodium, Blood 138 mmol/L (136-145)
[2018-11-14] MEDS ORDERED: METO5A PO (15:23)
[2018-11-14] MEDS ORDERED: Carafate1 GM/10 ML PO (15:25)
--- NOTE | 2018-11-14 16:30 | NUR ---
PT. DISCHARGED HOME WITH SPOUSE. EDUCATED ON THE IMPORTANCE OF WATCHING HIS CARB INTAKE. SPOUSE RELATES HE'S HAD CLASSES R/T TO DIABETES. PT. ALSO SEE AN ENDROCRINOLOGIST IN [place] AND IS TO FOLLOW UP.
[2018-11-18 20:06] LABS: FREE INSULIN 224 uU/mL (.); TOTAL INSULIN 225 uU/mL (.)
== END 2018-11-14 16:28 | disposition home or self-care (01) | DRG 391 ==
LOC: ER 19:02 → PCU 21:29 → MEDS 21:29 → PCU 11-10 00:10 → MEDS 11-13 14:21 → ENPENDDIS 11-14 14:00 → MEDS 11-14 16:28
PROVIDERS: Emergency Medicine; Internal Medicine; Internal Medicine Nephrology; ADMIT Internal Medicine
DX: R13.14 Dysphagia, pharyngoesophageal phase (principal); N17.0 Acute kidney failure with tubular necrosis; I13.0 Hypertensive heart and chronic kidney disease with heart failure and stage 1 through stage 4 chronic kidney disease, or unspecified chronic kidney disease; I50.22 Chronic systolic (congestive) heart failure; E87.1 Hypo-osmolality and hyponatremia; Z68.41 Body mass index [BMI] 40.0-44.9, adult; N17.9 Acute kidney failure, unspecified; N25.81 Secondary hyperparathyroidism of renal origin; I25.119 Atherosclerotic heart disease of native coronary artery with unspecified angina pectoris; J44.9 Chronic obstructive pulmonary disease, unspecified; N18.3 Chronic kidney disease, stage 3 (moderate); E11.22 Type 2 diabetes mellitus with diabetic chronic kidney disease; F32.9 Major depressive disorder, single episode, unspecified; E66.01 Morbid (severe) obesity due to excess calories; G47.33 Obstructive sleep apnea (adult) (pediatric); E11.42 Type 2 diabetes mellitus with diabetic polyneuropathy; E87.6 Hypokalemia; D50.9 Iron deficiency anemia, unspecified; E86.0 Dehydration; K75.81 Nonalcoholic steatohepatitis (NASH); Z95.1 Presence of aortocoronary bypass graft; K74.60 Unspecified cirrhosis of liver; I25.10 Atherosclerotic heart disease of native coronary artery without angina pectoris; E11.43 Type 2 diabetes mellitus with diabetic autonomic (poly)neuropathy; K31.84 Gastroparesis; K31.89 Other diseases of stomach and duodenum; Z95.5 Presence of coronary angioplasty implant and graft; E86.9 Volume depletion, unspecified; E78.5 Hyperlipidemia, unspecified; E78.1 Pure hyperglyceridemia; I27.20 Pulmonary hypertension, unspecified; Z86.73 Personal history of transient ischemic attack (TIA), and cerebral infarction without residual deficits; Z79.4 Long term (current) use of insulin
CPT/HCPCS: 36415; 51798; 71046; 71250; 74176; 74240; 78452; 80053; 80069; 82024; 82140; 82270; 82947; 83525; 83527; 83690; 83735; 83880; 84100; 84484; 85014; 85018; 85025; 85610; 85651; 86337; 93005; 93010; 93017; 94762; 96374; 99285-25; A9500; C9113; J0881; J1815; J2270; J2405; J2785; J3480; J7030

== ENCOUNTER 2019-01-01 18:50 | Inpatient (IN) | payer OTHER ==
[~2019-01-01] VITALS: Ht 175.3 cm; Wt 135.8 kg
[~2019-01-01 18:50] MED LIST changes: +Carafate1 GM/10 ML PO; +HUMULIN R500 UNIT/1 SC; +Humalog100 UNIT/1; -Humulin R500 UNIT/1 SC; +IRON INFUSION; +METO5 PO; +METO5A PO; +POTCHL10ER PO; +Robaxin750 MG PO
[2019-01-01 19:21] LABS: BASOPHILS ABSOLUTE AUTO 0.03 K/mm3 (0.00-0.23); BASOPHILS PERCENT AUTO 0 % (0-2); EOSINOPHILS ABSOLUTE AUTO 0.14 K/mm3 (0.00-0.68); EOSINOPHILS PERCENT AUTO 2 % (0-6); Hematocrit 30.1 % (37.0-53.0); Hemoglobin 9.5 g/dL (13.5-17.5); IMMATURE GRAN ABSOLUTE AUTO 0.35 K/mm3 (0.00-0.10); IMMATURE GRAN PERCENT AUTO 5 % (0-1); LYMPHOCYTES ABSOLUTE AUTO 0.76 K/mm3 (0.84-5.20); LYMPHOCYTES PERCENT AUTO 11 % (21-46); MONOCYTES ABSOLUTE AUTO 0.56 K/mm3 (0.16-1.47); MONOCYTES PERCENT AUTO 8 % (4-13); Mean Corpuscular HGB 29.5 pg (26.0-34.0); Mean Corpuscular HGB Conc 31.6 g/dL (31.5-36.5); Mean Corpuscular Volume 94 fL (80-100); Mean Platelet Volume 9.1 fL (9.1-12.4); NEUTROPHILS ABSOLUTE AUTO 4.95 K/mm3 (1.96-9.15); NEUTROPHILS PERCENT AUTO 73 % (41-73); Platelet Count 97 K/mm3 (150-400); RDW Coefficient Variation 16.9 % (11.7-14.2); RDW Standard Deviation 57.1 fL (35.1-46.3); Red Blood Cell Count 3.22 M/mm3 (4.30-5.90); White Blood Cell Count 6.79 K/mm3 (4.00-11.30)
[2019-01-01 19:44] LABS: Alanine Aminotransfer (ALT/SGP 67 U/L (12-78); Albumin/Globulin Ratio 0.9 (0.8-1.8); Alk Phos 117 U/L (50-136); Anion Gap 7 mmol/L (6-16); Aspartate Aminotrans (AST/SGOT 41 U/L (12-37); Bilirubin, Total 0.5 mg/dL (0.1-1.0); Blood Urea Nitrogen 43 mg/dL (8-24); Bun/Creatinine Ratio 34.1 (12.0-20.0); CO2, Blood 27 mmol/L (21-32); Calcium, Blood 8.3 mg/dL (8.5-10.1); Chloride, Blood 109 mmol/L (98-108); Creatinine, Blood 1.26 mg/dL (0.60-1.20); Globulin, Blood 3.4 g/dL (2.2-4.0); Glomerular Filtration Rate >60 (60-); Glucose, Blood 237 mg/dL (70-99); Potassium, Blood 3.9 mmol/L (3.5-5.5); Sodium, Blood 143 mmol/L (136-145); Total Protein, Blood 6.4 g/dL (6.4-8.2); Troponin I <0.015 ng/mL (0.000-0.040)
[2019-01-02] MEDS ORDERED: Humulin N100 UNIT/1 SC (01:12)
[2019-01-02] MEDS ORDERED: AMLO10 PO (01:16)
[2019-01-02] MEDS ORDERED: BACL10 PO (01:16)
[2019-01-02] MEDS ORDERED: MECL12.5 PO (01:20)
--- NOTE | 2019-01-02 05:46 | NUR ---
ASSUMED CARE OF PATIENT AT APPROXIMATELY 0005 FROM ED ABA Navas PATIENT ARRIVES TO UNIT VIA STRETCHER; TRANSFER VIA SBA FROM ED TO PCU STRETCHER; PATIENT REPORTS SOB; PATIENT REPORTS CHEST PAIN; PINPOINT ON LEFT CHEST; REPORTS SAME CHEST PAIN THAT BROUGHT HIM IN; REPORTED NITRO DID NOT HELP; PATIENT REQUESTS PAIN MEDICATION; TYLENOL ONLY PAIN MEDICATION AVAILABLE; PATIETN REPORTS WILL NOT HELP; CALLED DR. DHALIWAL; ORDERS RECIEVED; CHEST PAIN WAS 7 UPON ARRIVAL; 9 BEFORE FENTANLY; 7 WITHIN MINUTES OF FENTANYL. TROPONIN X2 NEGATIVE; NO CHANGES ON TELE; NSR ON TELE; OXYGEN SATURATION ABOVE 90% ON 1LPM VIA NC; PATIENT WAS ABLE TO SLEEP FOR ABOUT 2.5 HOURS WITH HOSPITAL CPAP ON. NUMBNESS AND TINGLING IN FEET CHRONIC. DIZZINESS AND LIGHTHEADED REPORTED WITH AMBULATION; PATIENT EDUCATED TO CALL BEFORE AMBULATION; VERBALIZED UNDERSTANDING. PIV S/L. PATIENT URINATES INTO URINAL AT BEDSIDE. ADMISSION COMPLETE. PATIENT CURRENTLY RESTING IN BED; CALL LIGHT IN REACH; BED IN LOWEST POSISTION; BED ALARM ON; WILL CONTINUE TO MONITOR AND ASSESS UNTIL END OF SHIFT.
--- NOTE | 2019-01-02 07:53 | NUR ---
Bedside handoff report at 0715, and the pt was drowsy, resting on his left side, eyes closing slowly, but did wake up briefly to talk with RN. At this time, states he is having chest pain 9. States that he was woken up for a blood sugar check, he found that he was having the severe pain. STates that deep inspiration has no effect on the pain, nor does movement or activity. When I entered the room after he had called regarding thepain, he is sitting on the side of the bed, eating breakfast. States he will be able to eat. Blod sugar was low this morning. Denies dyspnea. Lung sounds are clear, spo2 97% while wearing oxygen 2 l/min. States that this is his home dose which he wears all the time.
[2019-01-02 08:01] LABS: Anion Gap 5 mmol/L (6-16); Blood Urea Nitrogen 39 mg/dL (8-24); Bun/Creatinine Ratio 37.5 (12.0-20.0); CO2, Blood 32 mmol/L (21-32); Chloride, Blood 110 mmol/L (98-108); Creatinine, Blood 1.04 mg/dL (0.60-1.20); Glomerular Filtration Rate >60 (60-); Glucose, Blood 53 mg/dL (70-99); Magnesium, Blood 2.6 mg/dL (1.6-2.4); Sodium, Blood 147 mmol/L (136-145)
--- NOTE | 2019-01-02 10:25 | NUR ---
0900 The pt has requested pain medication a few times in the past hour. At this time, I am administering his oral medications and he is lying on the bed, supine, falling asleep spontaneously and waking up only to stimulation of speech or gentle tactile stimuli. Fentanyl held at this time due to his somnulent state and the fact that he is getting other medications which may increase his somnulence.
--- NOTE | 2019-01-02 10:52 | NUR ---
Spoke with the pt's at this time. The pt is lying on his left side, still somnulent, but awakens occasionally to his own snore, or to verbal stimulus. He appears comfortable.
--- NOTE | 2019-01-02 12:50 | NUR ---
The pt called twice for pain medication. I entered the room, noted that he is sitting on the side of the bed, breathing heavily, rate 16/min. No diaphoresis, denies dyspnea, denies n/v. States that pain is a severe pressure over the left side of the chest, and that it is the same type of pain that he had last night. NO changes on telemetry monitoring--normal sinus rhythm, no ST changes. Vital signs taken, noted stable. He is requesting IV fentanyl. Stated this morning that his pain was sharp, and was not affected by movement, inspiration, or activity. At this time, he states that it is the same kind of pain which he had this morning, but he is describing it as a pressure, unchanged by deep inspiration or expiration, and worse with activity. He does not want to lie down, states he prefers to sit on the side of the bed. Pain medication was given as ordered, and within 30 seconds he appeared more comfortable. Breathing was relaxed, inaudible, and his facial expression was calm. However, I asked him if he was feeling any better and he said no, that his pain was just as severe. He remains sitting quietly on the side of the bed, drinking water. He has had a good appetite today.
[2019-01-04] MEDS ORDERED: SPIR50 (23:47)
== END 2019-01-02 17:20 | disposition home or self-care (01) | DRG 291 ==
LOC: ER 18:50 → PCU 22:39 → ER 23:52 → PCU 01-02 00:05
PROVIDERS: Emergency Medicine; Nurse Practitioner Acute Care; ADMIT Internal Medicine
DX: I13.0 Hypertensive heart and chronic kidney disease with heart failure and stage 1 through stage 4 chronic kidney disease, or unspecified chronic kidney disease (principal); I50.43 Acute on chronic combined systolic (congestive) and diastolic (congestive) heart failure; F11.20 Opioid dependence, uncomplicated; Z68.41 Body mass index [BMI] 40.0-44.9, adult; N18.3 Chronic kidney disease, stage 3 (moderate); E11.22 Type 2 diabetes mellitus with diabetic chronic kidney disease; G47.33 Obstructive sleep apnea (adult) (pediatric); J44.9 Chronic obstructive pulmonary disease, unspecified; G89.29 Other chronic pain; E78.5 Hyperlipidemia, unspecified; E66.01 Morbid (severe) obesity due to excess calories; F32.9 Major depressive disorder, single episode, unspecified; Z86.73 Personal history of transient ischemic attack (TIA), and cerebral infarction without residual deficits; E11.40 Type 2 diabetes mellitus with diabetic neuropathy, unspecified; M54.9 Dorsalgia, unspecified; Z99.81 Dependence on supplemental oxygen; Z95.1 Presence of aortocoronary bypass graft; Z79.4 Long term (current) use of insulin; I25.10 Atherosclerotic heart disease of native coronary artery without angina pectoris; Z95.5 Presence of coronary angioplasty implant and graft; Z91.19 Patient's noncompliance with other medical treatment and regimen; M79.7 Fibromyalgia; D69.6 Thrombocytopenia, unspecified
CPT/HCPCS: 36415; 71046; 80048; 80053; 82947; 83735; 83880; 84484; 85025; 93005; 93010; 94660; 94762; 96374; 99285-25; J1650; J1815; J3010

== ENCOUNTER 2019-01-04 23:22 | Inpatient (IN) | payer OTHER ==
[~2019-01-04] VITALS: Ht 175.3 cm; Wt 133.0 kg
[~2019-01-04 23:22] MED LIST changes: +ATOR80 PO; +Humulin N100 UNIT/1 SC; -MAGOXI400 PO; +Nitrostat0.4 MG SL; -OXYC1TAB11 PO; -POTCHL10ER PO
[2019-01-04] MEDS ORDERED: SPIR50 PO (23:47)
[2019-01-04 23:54] LABS: BASOPHILS ABSOLUTE AUTO 0.03 K/mm3 (0.00-0.23); BASOPHILS PERCENT AUTO 0 % (0-2); EOSINOPHILS ABSOLUTE AUTO 0.15 K/mm3 (0.00-0.68); EOSINOPHILS PERCENT AUTO 2 % (0-6); Hematocrit 29.3 % (37.0-53.0); IMMATURE GRAN ABSOLUTE AUTO 0.42 K/mm3 (0.00-0.10); IMMATURE GRAN PERCENT AUTO 6 % (0-1); LYMPHOCYTES PERCENT AUTO 14 % (21-46); MONOCYTES ABSOLUTE AUTO 0.83 K/mm3 (0.16-1.47); MONOCYTES PERCENT AUTO 12 % (4-13); Mean Corpuscular HGB 28.8 pg (26.0-34.0); Mean Corpuscular HGB Conc 30.7 g/dL (31.5-36.5); Mean Corpuscular Volume 94 fL (80-100); Mean Platelet Volume 8.2 fL (9.1-12.4); NEUTROPHILS ABSOLUTE AUTO 4.68 K/mm3 (1.96-9.15); NEUTROPHILS PERCENT AUTO 66 % (41-73); Platelet Count 116 K/mm3 (150-400); RDW Coefficient Variation 17.2 % (11.7-14.2); RDW Standard Deviation 58.4 fL (35.1-46.3); Red Blood Cell Count 3.12 M/mm3 (4.30-5.90); White Blood Cell Count 7.11 K/mm3 (4.00-11.30)
[2019-01-05 00:14] LABS: Anion Gap 6 mmol/L (6-16); Blood Urea Nitrogen 42 mg/dL (8-24); Bun/Creatinine Ratio 36.2 (12.0-20.0); CO2, Blood 30 mmol/L (21-32); Calcium, Blood 8.6 mg/dL (8.5-10.1); Chloride, Blood 106 mmol/L (98-108); Creatinine, Blood 1.16 mg/dL (0.60-1.20); Glomerular Filtration Rate >60 (60-); Glucose, Blood 145 mg/dL (70-99); Potassium, Blood 4.1 mmol/L (3.5-5.5); Sodium, Blood 142 mmol/L (136-145); Troponin I <0.015 ng/mL (0.000-0.040)
--- NOTE | 2019-01-05 03:50 | NUR ---
TRANSFER REPORT ON PT BEING READMITTED WITH CHF DYSPNEA FROM SARINA NOLAND RN ON PT FULL CODE BEING ADMITTED TELE AFTER RECENTLY CHF ADMISSION. AWAIT ADMISSION. PT WITH MULIPLE MEDICAL PROBLEMS INCLUDING CABG AND DELLA DIABETES DEPRESSION ANXIETY.
--- NOTE | 2019-01-05 05:50 | NUR ---
LT SHOULDER IV STARTED IN ED AND NOT DOCUMENTED. IV PATENT FLUSHED WITHOUT DIFFICULTY.
--- NOTE | 2019-01-05 18:15 | NUR ---
PATIENT CONTINUES TO STRUGGLE TO KEEP BG WNL. INSULIN ORDERS CHANGED THIS SHIFT. PATIENT EDUCATED REGARDING PROPER DIET NEEDED FOR BG CONTROL. PATIENT HAS HAD AT BEDSIDE. NO ACUTE CHANGES THIS SHIFT. CALL LIGTH WITHIN REACH.
[2019-01-06 04:54] LABS: BASOPHILS ABSOLUTE AUTO 0.04 K/mm3 (0.00-0.23); BASOPHILS PERCENT AUTO 1 % (0-2); EOSINOPHILS ABSOLUTE AUTO 0.06 K/mm3 (0.00-0.68); EOSINOPHILS PERCENT AUTO 1 % (0-6); Hematocrit 30.5 % (37.0-53.0); Hemoglobin 9.4 g/dL (13.5-17.5); IMMATURE GRAN ABSOLUTE AUTO 0.49 K/mm3 (0.00-0.10); IMMATURE GRAN PERCENT AUTO 6 % (0-1); LYMPHOCYTES ABSOLUTE AUTO 1.33 K/mm3 (0.84-5.20); LYMPHOCYTES PERCENT AUTO 16 % (21-46); MONOCYTES ABSOLUTE AUTO 0.88 K/mm3 (0.16-1.47); MONOCYTES PERCENT AUTO 11 % (4-13); Mean Corpuscular HGB 28.2 pg (26.0-34.0); Mean Corpuscular HGB Conc 30.8 g/dL (31.5-36.5); Mean Corpuscular Volume 92 fL (80-100); Mean Platelet Volume 9.1 fL (9.1-12.4); NEUTROPHILS ABSOLUTE AUTO 5.57 K/mm3 (1.96-9.15); NEUTROPHILS PERCENT AUTO 67 % (41-73); Platelet Count 112 K/mm3 (150-400); RDW Coefficient Variation 17.1 % (11.7-14.2); RDW Standard Deviation 56.7 fL (35.1-46.3); Red Blood Cell Count 3.33 M/mm3 (4.30-5.90); White Blood Cell Count 8.37 K/mm3 (4.00-11.30)
[2019-01-06 05:10] LABS: Bun/Creatinine Ratio 48.9 (12.0-20.0); Calcium, Blood 9.1 mg/dL (8.5-10.1); Creatinine, Blood 1.33 mg/dL (0.60-1.20); Magnesium, Blood 2.2 mg/dL (1.6-2.4); Potassium, Blood 3.9 mmol/L (3.5-5.5)
--- NOTE | 2019-01-06 06:47 | NUR ---
pt WT down 3.81 kg from admission and he has no acute complaints. oxygen 2 l nc as per baseline. blood glucose less than 200 at hs snacks. and wanted salty food and cheese. offered alternative as pt had cheese and sandwitch earlier.
--- NOTE | 2019-01-06 18:06 | NUR ---
NOTIFIED DR COLIN OF BLOOD GLUCOSE OF 85 AND THE CURRENT ORDERS FOR HUMILIN-R 50 UNITS AT 1730. NEW ORDERS TO GIVE HUMILIN-R 30 UNITS. WILL CONTINUE TO MONITOR
--- NOTE | 2019-01-06 20:02 | NUR ---
SHIFT SUMMARY PT A&Ox4. CALM AND COOPERATIVE WITH CARE. PT RESTING IN BED DURING SHIFT, APPEARS TO BE SLEEPING INTERMITTENTLY T/O DAY. PT UP IND IN ROOM. UP IN CHAIR FOR MEALS. PT ENCOURAGED TO USE A URINAL THIS AFTERNOON FOR I&O TRACKING. PT REPROTS CHRONIC BACK AND R HIP PAIN, MEDICATED WITH SCHEDULED PAIN MEDICATIONS. PT REPORTS SOB AT BASELINE, >92% ON 2L O2, HOME DOSE FOR O2. PT DENIES N/V DURING SHIFT. PT RECEIVING IV BUMEX. VSS. NO OTHER ACUTE CHANGES NOTED DURING SHIFT. REPORT GIVEN TO ONCOMING RN.
[2019-01-07 05:38] LABS: BASOPHILS ABSOLUTE AUTO 0.07 K/mm3 (0.00-0.23); BASOPHILS PERCENT AUTO 1 % (0-2); EOSINOPHILS ABSOLUTE AUTO 0.14 K/mm3 (0.00-0.68); EOSINOPHILS PERCENT AUTO 2 % (0-6); Hemoglobin 9.9 g/dL (13.5-17.5); IMMATURE GRAN ABSOLUTE AUTO 0.47 K/mm3 (0.00-0.10); IMMATURE GRAN PERCENT AUTO 6 % (0-1); LYMPHOCYTES PERCENT AUTO 13 % (21-46); MONOCYTES ABSOLUTE AUTO 0.83 K/mm3 (0.16-1.47); MONOCYTES PERCENT AUTO 11 % (4-13); Mean Corpuscular HGB 28.9 pg (26.0-34.0); Mean Corpuscular HGB Conc 30.9 g/dL (31.5-36.5); Mean Corpuscular Volume 93 fL (80-100); Mean Platelet Volume 8.8 fL (9.1-12.4); NEUTROPHILS ABSOLUTE AUTO 5.25 K/mm3 (1.96-9.15); NEUTROPHILS PERCENT AUTO 68 % (41-73); Platelet Count 130 K/mm3 (150-400); RDW Coefficient Variation 17.2 % (11.7-14.2); RDW Standard Deviation 58.6 fL (35.1-46.3); Red Blood Cell Count 3.43 M/mm3 (4.30-5.90); White Blood Cell Count 7.76 K/mm3 (4.00-11.30)
[2019-01-07 06:14] LABS: Alanine Aminotransfer (ALT/SGP 82 U/L (12-78); Albumin/Globulin Ratio 0.7 (0.8-1.8); Alk Phos 137 U/L (50-136); Anion Gap 8 mmol/L (6-16); Aspartate Aminotrans (AST/SGOT 54 U/L (12-37); Bilirubin, Total 0.6 mg/dL (0.1-1.0); Blood Urea Nitrogen 67 mg/dL (8-24); Bun/Creatinine Ratio 53.2 (12.0-20.0); CO2, Blood 31 mmol/L (21-32); Calcium, Blood 8.6 mg/dL (8.5-10.1); Chloride, Blood 99 mmol/L (98-108); Creatinine, Blood 1.26 mg/dL (0.60-1.20); Globulin, Blood 4.1 g/dL (2.2-4.0); Glomerular Filtration Rate >60 (60-); Glucose, Blood 203 mg/dL (70-99); Phosphorus, Blood 4.2 mg/dL (2.5-4.9); Potassium, Blood 3.9 mmol/L (3.5-5.5); Sodium, Blood 138 mmol/L (136-145); Total Protein, Blood 7.1 g/dL (6.4-8.2)
--- NOTE | 2019-01-07 07:26 | NUR ---
Shift summary: Pt did well overnight. No c/o discomfort. Pt up eating during the night. Pt on tele- NSR 83 per television production clerk. VSS. Blood sugar at hs was 112. Pt given snack and his nph insulin.
[2019-01-07] MEDS ORDERED: METO2.5 PO (12:22)
--- NOTE | 2019-01-07 14:04 | NUR ---
PATIENT DISCHARGE THE PATIENT WAS DISCHAGED HOME WITH HIS SPOUSE, AFTER DISCHARGE INSTRUCTIONS WERE GIVEN TO THE PATIENT. THE PATIENT WAS INSTRUCTED TO FOLLOW UP WITH HIS DOCTORS AND TO DIGITAL MARKETING APPRENTICE HIS MEDICATIONS PRESCRIBED. THE PATIENT LEFT THE HOSPITAL WITH OUT CONCERN OR COMPLAINT.
[2019-01-13] MEDS ORDERED: BACL10 PO (17:38)
[2019-01-13] MEDS ORDERED: OXYC1TAB11 PO (17:47)
[2019-01-13] MEDS ORDERED: MIRALAX17 GM PO (19:17)
[2019-01-13] MEDS ORDERED: Senna-Docusate1 EACH PO (19:17)
[2019-01-13] MEDS ORDERED: SPIR50 PO (20:07)
[2019-01-13] MEDS ORDERED: TRULICITY0.75 MG/0. SC (20:07)
[2019-01-14] MEDS ORDERED: RELION NOV100 UNIT/1 SC (14:36)
== END 2019-01-07 12:54 | disposition home or self-care (01) | DRG 291 ==
LOC: ER 23:22 → MEDS 01-05 03:21 → ENPENDDIS 01-07 11:29 → MEDS 01-07 12:54
PROVIDERS: Hospitalist; Physician Assistant; ADMIT Internal Medicine
DX: I13.0 Hypertensive heart and chronic kidney disease with heart failure and stage 1 through stage 4 chronic kidney disease, or unspecified chronic kidney disease (principal); I50.43 Acute on chronic combined systolic (congestive) and diastolic (congestive) heart failure; J44.1 Chronic obstructive pulmonary disease with (acute) exacerbation; Z68.41 Body mass index [BMI] 40.0-44.9, adult; N18.2 Chronic kidney disease, stage 2 (mild); E11.22 Type 2 diabetes mellitus with diabetic chronic kidney disease; D63.1 Anemia in chronic kidney disease; K74.60 Unspecified cirrhosis of liver; R09.02 Hypoxemia; E78.5 Hyperlipidemia, unspecified; G47.33 Obstructive sleep apnea (adult) (pediatric); M10.9 Gout, unspecified; Z79.4 Long term (current) use of insulin; Z99.81 Dependence on supplemental oxygen; I25.10 Atherosclerotic heart disease of native coronary artery without angina pectoris; Z95.5 Presence of coronary angioplasty implant and graft; Z86.73 Personal history of transient ischemic attack (TIA), and cerebral infarction without residual deficits; E66.01 Morbid (severe) obesity due to excess calories; Z95.1 Presence of aortocoronary bypass graft; Z86.711 Personal history of pulmonary embolism; E11.65 Type 2 diabetes mellitus with hyperglycemia
CPT/HCPCS: 36415; 71045; 80048; 80053; 82947; 83036; 83735; 83880; 84100; 84484; 85025; 85379; 93005; 93010; 94640; 94760; 96374; 99285-25; J1650; J1815; J1940; J2930

== ENCOUNTER 2019-01-10 12:44 | Emergency (ER) | payer OTHER ==
[~2019-01-10] VITALS: Ht 175.3 cm; Wt 136.1 kg
[2019-01-11] MEDS ORDERED: MAGOXI400 PO (10:17)
[2019-01-11] MEDS ORDERED: POTCHL10ER PO (10:18)
[2019-01-11] MEDS ORDERED: MECL12.5 PO (10:18)
[2019-01-13] MEDS ORDERED: BACL10 PO (17:38)
[2019-01-13] MEDS ORDERED: OXYC1TAB11 PO (17:47)
[2019-01-13] MEDS ORDERED: MIRALAX17 GM PO (19:17)
[2019-01-13] MEDS ORDERED: Senna-Docusate1 EACH PO (19:17)
[2019-01-13] MEDS ORDERED: TRULICITY0.75 MG/0. SC (20:07)
[2019-01-13] MEDS ORDERED: SPIR50 PO (20:07)
== END 2019-01-10 13:43 | disposition home or self-care (01) ==
LOC: ER 12:44
DX: I13.0 Hypertensive heart and chronic kidney disease with heart failure and stage 1 through stage 4 chronic kidney disease, or unspecified chronic kidney disease (principal); E11.22 Type 2 diabetes mellitus with diabetic chronic kidney disease; N18.9 Chronic kidney disease, unspecified; I50.30 Unspecified diastolic (congestive) heart failure; J44.9 Chronic obstructive pulmonary disease, unspecified; E78.5 Hyperlipidemia, unspecified; M10.9 Gout, unspecified; Z88.6 Allergy status to analgesic agent; Z88.8 Allergy status to other drugs, medicaments and biological substances; Z79.82 Long term (current) use of aspirin; Z79.899 Other long term (current) drug therapy; Z86.711 Personal history of pulmonary embolism; Z95.1 Presence of aortocoronary bypass graft; Z95.5 Presence of coronary angioplasty implant and graft

== ENCOUNTER 2019-01-11 09:54 | Day surgery (SDC) | payer OTHER ==
[2019-01-11] MEDS ORDERED: MAGOXI400 PO (10:17)
[2019-01-11] MEDS ORDERED: MECL12.5 PO (10:18)
[2019-01-11] MEDS ORDERED: POTCHL10ER PO (10:18)
[2019-01-13] MEDS ORDERED: BACL10 PO (17:38)
[2019-01-13] MEDS ORDERED: OXYC1TAB11 PO (17:47)
[2019-01-13] MEDS ORDERED: Senna-Docusate1 EACH PO (19:17)
[2019-01-13] MEDS ORDERED: MIRALAX17 GM PO (19:17)
[2019-01-13] MEDS ORDERED: TRULICITY0.75 MG/0. SC (20:07)
[2019-01-13] MEDS ORDERED: SPIR50 PO (20:07)
[2019-01-14] MEDS ORDERED: RELION NOV100 UNIT/1 SC (14:36)
== END 2019-01-11 10:30 | disposition home or self-care (01) ==
LOC: ATC 09:54
DX: I13.0 Hypertensive heart and chronic kidney disease with heart failure and stage 1 through stage 4 chronic kidney disease, or unspecified chronic kidney disease (principal); I50.43 Acute on chronic combined systolic (congestive) and diastolic (congestive) heart failure; E11.22 Type 2 diabetes mellitus with diabetic chronic kidney disease; N18.2 Chronic kidney disease, stage 2 (mild); D63.1 Anemia in chronic kidney disease; I25.10 Atherosclerotic heart disease of native coronary artery without angina pectoris; E78.5 Hyperlipidemia, unspecified; D69.6 Thrombocytopenia, unspecified; J44.9 Chronic obstructive pulmonary disease, unspecified; G47.33 Obstructive sleep apnea (adult) (pediatric); Z86.711 Personal history of pulmonary embolism; Z95.1 Presence of aortocoronary bypass graft; Z88.6 Allergy status to analgesic agent; Z88.8 Allergy status to other drugs, medicaments and biological substances; Z79.82 Long term (current) use of aspirin; Z79.899 Other long term (current) drug therapy
CPT/HCPCS: 96374

== ENCOUNTER 2019-01-11 18:18 | Emergency (ER) | payer OTHER ==
[~2019-01-11] VITALS: Ht 175.3 cm; Wt 131.5 kg
[~2019-01-11 18:18] MED LIST changes: +MAGOXI400 PO; +MECL12.5 PO; +POTCHL10ER PO
[2019-01-11 19:12] LABS: BASOPHILS ABSOLUTE AUTO 0.04 K/mm3 (0.00-0.23); BASOPHILS PERCENT AUTO 0 % (0-2); EOSINOPHILS ABSOLUTE AUTO 0.08 K/mm3 (0.00-0.68); EOSINOPHILS PERCENT AUTO 1 % (0-6); Hematocrit 30.2 % (37.0-53.0); Hemoglobin 9.6 g/dL (13.5-17.5); IMMATURE GRAN ABSOLUTE AUTO 0.46 K/mm3 (0.00-0.10); IMMATURE GRAN PERCENT AUTO 5 % (0-1); LYMPHOCYTES ABSOLUTE AUTO 0.75 K/mm3 (0.84-5.20); LYMPHOCYTES PERCENT AUTO 8 % (21-46); MONOCYTES ABSOLUTE AUTO 0.78 K/mm3 (0.16-1.47); MONOCYTES PERCENT AUTO 8 % (4-13); Mean Corpuscular HGB 28.5 pg (26.0-34.0); Mean Corpuscular HGB Conc 31.8 g/dL (31.5-36.5); Mean Platelet Volume 9.1 fL (9.1-12.4); NEUTROPHILS ABSOLUTE AUTO 7.24 K/mm3 (1.96-9.15); NEUTROPHILS PERCENT AUTO 78 % (41-73); Platelet Count 112 K/mm3 (150-400); RDW Coefficient Variation 17.3 % (11.7-14.2); RDW Standard Deviation 56.1 fL (35.1-46.3); Red Blood Cell Count 3.37 M/mm3 (4.30-5.90); White Blood Cell Count 9.35 K/mm3 (4.00-11.30)
[2019-01-11 19:20] LABS: Mean Corpuscular Volume 90 fL (80-100)
[2019-01-11 19:38] LABS: Troponin I <0.015 ng/mL (0.000-0.040)
[2019-01-11 19:39] LABS: Alanine Aminotransfer (ALT/SGP 63 U/L (12-78); Albumin, Blood 2.9 g/dL (3.4-5.0); Albumin/Globulin Ratio 0.7 (0.8-1.8); Alk Phos 145 U/L (50-136); Anion Gap 9 mmol/L (6-16); Aspartate Aminotrans (AST/SGOT 32 U/L (12-37); Bilirubin, Total 0.5 mg/dL (0.1-1.0); Blood Urea Nitrogen 97 mg/dL (8-24); Bun/Creatinine Ratio 65.5 (12.0-20.0); CO2, Blood 35 mmol/L (21-32); Calcium, Blood 9.2 mg/dL (8.5-10.1); Chloride, Blood 91 mmol/L (98-108); Creatinine, Blood 1.48 mg/dL (0.60-1.20); Globulin, Blood 4.3 g/dL (2.2-4.0); Glomerular Filtration Rate 52 (60-); Glucose, Blood 250 mg/dL (70-99); Potassium, Blood 3.7 mmol/L (3.5-5.5); Sodium, Blood 135 mmol/L (136-145); Total Protein, Blood 7.2 g/dL (6.4-8.2)
[2019-01-11 20:33] LABS: Source, Urine Clean Catch
[2019-01-11 20:42] LABS: Bilirubin, Urine Neg (Neg); Blood, Urine Neg (Neg); Glucose Qualitative, Urine Neg (Neg); Ketones, Urine Neg (Neg); Leukocyte Esterase, Urine Neg (Neg); Nitrite, Urine Neg (Neg); Protein, Urine Neg (Neg); Specific Gravity, Urine 1.015 (1.003-1.022); Urobilinogen, Urine NORM (Normal)
[2019-01-11 20:46] LABS: Appearance, Urine Clear (Clear); Color, Urine Yellow (P-Yellow)
[2019-01-13] MEDS ORDERED: BACL10 PO (17:38)
[2019-01-13] MEDS ORDERED: OXYC1TAB11 PO (17:47)
[2019-01-13] MEDS ORDERED: Senna-Docusate1 EACH PO (19:17)
[2019-01-13] MEDS ORDERED: MIRALAX17 GM PO (19:17)
[2019-01-13] MEDS ORDERED: SPIR50 PO (20:07)
[2019-01-13] MEDS ORDERED: TRULICITY0.75 MG/0. SC (20:07)
[2019-01-14] MEDS ORDERED: RELION NOV100 UNIT/1 SC (14:36)
== END 2019-01-11 22:04 | disposition home or self-care (01) ==
LOC: ER 18:18
PROVIDERS: Physician Assistant
DX: E11.22 Type 2 diabetes mellitus with diabetic chronic kidney disease (principal); N18.9 Chronic kidney disease, unspecified; R06.00 Dyspnea, unspecified; F32.9 Major depressive disorder, single episode, unspecified; G89.29 Other chronic pain; I50.9 Heart failure, unspecified; Z88.6 Allergy status to analgesic agent; Z88.8 Allergy status to other drugs, medicaments and biological substances; Z79.899 Other long term (current) drug therapy; Z79.82 Long term (current) use of aspirin; Z86.73 Personal history of transient ischemic attack (TIA), and cerebral infarction without residual deficits; Z95.1 Presence of aortocoronary bypass graft
CPT/HCPCS: 36415; 71046; 80053; 81003; 83880; 84484; 85025; 93005; 93010; 99284-25